=== PATIENT | male | born 1995 | race Caucasian/White ===

== ENCOUNTER 2021-12-01 11:34 | Emergency (ER) | payer OTHER, MEDICAID, SELFPAY ==
[2021-12-01 11:40] VITALS: BP 138/85; PULSE 97; RESP 24; TEMP 36.7; O2SAT 100; BMI 40.6
[2021-12-01 12:08] LABS: COVID19 -Nasal RAPID Negative (Negative)
[2021-12-01] MEDS: ALBUTEROL/IPRATROPIUM 3 ML AMPUL INH (12:33)
[2021-12-01 12:34] VITALS: PULSE 104; RESP 18; O2SAT 98
--- NOTE | 2021-12-01 12:34 | ED_ITS ---
HPI - Asthma <FOUZIA Davila - Last Filed: 12/01/21 20:05> General Chief Complaint: Asthma Stated Complaint: Asthma attack Time Seen by Provider: 12/01/21 12:11 Source: patient Mode of arrival: Ambulatory History of Present Illness HPI Narrative: This is a 26-year-old male with history of asthma and seasonal allergies who presents to the emergency department reporting he had an acute exacerbation this morning with shortness of breath, and he has run out of his albuterol inhaler. He states he does not have a primary care doctor right now, he is new to this area, his exacerbation did not improve at home. He denies any recent illness, fever, pain, or chest pain. Patient takes Claritin daily for his seasonal allergies, woke up this morning feeling breathless, and it did not improve without an inhaler at home. Related Data Previous Rx's Medication Instructions Recorded albuterol sulfate 90 mcg/actuation 1 inh INHALATION QID PRN #6.7 g 12/01/21 aerosol inhaler fluticasone furoate 27.5 1 spray INTRANASAL DAILY #9.1 ml 12/01/21 mcg/actuation nasal spray,suspension methylprednisolone 4 mg tablets in See Rx Instructions .ROUTE 12/01/21 a dose pack (Medrol (Isacc)) .COMPLEX #21 ea Allergies Allergy/AdvReac Type Severity Reaction Status Date / Time No Known Drug Allergies Allergy Verified 12/01/21 11:50 Review of Systems <FOUZIA Davila - Last Filed: 12/01/21 20:05> Review of Systems Narrative: General: denies fever, chills, malaise, sweats, fatigue Head/Neck: denies headache, neck pain, dizziness Eyes: denies visual changes, eye pain Cardio: denies chest pain, palpitations, edema Respiratory: Endorses dyspnea, cough, shortness of breath with activity, denies orthopnea GI: denies abdominal pain, nausea, vomiting, or diarrhea MSK: denies joint pain, muscle weakness Skin: denies rash, itching, skin lesions or other Neuro: denies numbness, tingling Patient History <FOUZIA Davila - Last Filed: 12/01/21 20:05> Social History Smoking Status: Unknown if ever smoked Smoking Status: Unknown if ever smoked alcohol intake frequency: holidays/special occasions only Substance Use Type: does not use Exam <FOUZIA Davila - Last Filed: 12/01/21 20:05> Narrative Exam Narrative: Independently reviewed vitals signs and nursing notes. General: cooperative, comfortable, in no acute distress, well groomed Head: atraumatic, symmetrical facial expressions Neck: supple Eyes: equal round and reactive, EOMI, conjunctiva normal Nose: nares patent, no rhinorrhea Mouth/Throat: moist mucus membranes Cardiovascular: regular rate and rhythm, no peripheral edema, warm extremities Respiratory: normal effort, able to speak in complete sentences, no audible wheezing, stridor, or rales. No retractions, mildly tachypneic with respiratory rate of 24, breath sounds are slightly diminished, they have reportedly improved pt and he states he only feels slightly short of breath now and is no longer wheezing GI: abdomen soft, nontender to palpation, nondistended, no masses, no exquisite tenderness with exam, without guarding or rebound. MSK: moves all extremities, neurovascularly intact, no weakness, normal tone Skin: brisk capillary refill, no rash, no erythema Neuro: normal speech and cognition, A&O x3 Psych: mental status is grossly normal, congruent mood, normal affect, pleasant and cooperative Initial Vital Signs Initial Vital Signs: Vital Signs Temperature 98.0 F 12/01/21 11:40 Pulse Rate 97 H 12/01/21 11:40 Respiratory Rate 24 12/01/21 11:40 Blood Pressure 138/85 12/01/21 11:40 Pulse Oximetry 100 12/01/21 11:40 <Marzena Ha DO - Last Filed: 12/08/21 07:36> Initial Vital Signs Initial Vital Signs: Vital Signs Temperature 98.0 F 12/01/21 11:40 Pulse Rate 97 H 12/01/21 11:40 Respiratory Rate 24 12/01/21 11:40 Blood Pressure 138/85 12/01/21 11:40 Pulse Oximetry 100 12/01/21 11:40 Course <FOUZIA Davila - Last Filed: 12/01/21 20:05> Orders Ordered: Discontinued Medications Albuterol/Ipratropium (Albuterol/Ipratropium 3 Ml Ampul) 3 ml INH NOW ONE Stop: 12/01/21 12:27 Last Admin: 12/01/21 12:33 Dose: 3 ml Documented by: TORI Dexamethasone (Dexamethasone 10 Mg/Ml Vial) 10 mg PO NOW ONE Stop: 12/01/21 12:28 Last Admin: 12/01/21 12:41 Dose: 10 mg Documented by: KBROTEM Vital Signs Vital signs: Vital Signs - 8 hr 12/01/21 12:34 12/01/21 12:43 Pulse Rate 104 H 104 H Respiratory Rate 18 Pulse Oximetry 98 100 <Marzena Ha DO - Last Filed: 12/08/21 07:36> Orders Ordered: Discontinued Medications Albuterol/Ipratropium (Albuterol/Ipratropium 3 Ml Ampul) 3 ml INH NOW ONE Stop: 12/01/21 12:27 Last Admin: 12/01/21 12:33 Dose: 3 ml Documented by: TORI Dexamethasone (Dexamethasone 10 Mg/Ml Vial) 10 mg PO NOW ONE Stop: 12/01/21 12:28 Last Admin: 12/01/21 12:41 Dose: 10 mg Documented by: KBROTEM Vital Signs Vital signs: Vital Signs - 8 hr 12/01/21 12:34 12/01/21 12:43 Pulse Rate 104 H 104 H Respiratory Rate 18 Pulse Oximetry 98 100 [facility] - Asthma <FOUZIA Davila - Last Filed: 12/01/21 20:05> Lab Data Labs: Lab Results 12/01/21 Range/Units 11:48 SARS-CoV-2 (PCR) Negative (Negative) ECG Data Interpretation: EKG independently reviewed by myself reveals sinus tachycardia at 105 bpm with regular axis and intervals. No STEMI, ST segment changes, arrhythmia, or acute ischemic changes. MDM Narrative Medical decision making narrative: This is a 26-year-old male with history of asthma and allergic rhinitis who presents to the emergency department with acute asthma exacerbation and dyspnea. Patient reports feeling breathless this morning and ran out of his albuterol inhaler at home. He does not currently have a primary care provider and is looking to establish care. Initially on exam, patient was tachypneic with a rate of 24, without hypoxia, O2 saturation of 100%, patient states that when woke up around eight this morning, he was breathless and short of breath with wheezing and it has improved since then but only slightly and just recently. He denies any illness symptoms prior to today, states he has a history of asthma exacerbations with seasonal allergies approximately once per month but especially in the spring and the fall. Patient reportedly feels better after DuoNeb x1, COVID PCR was negative, patient is encouraged to establish primary care with a provider based on his insurance or here with [facility]. Patient's albuterol inhaler prescription was refilled and he was given refills x3, also prescribed fluticasone and Medrol Dosepak. He was given Decadron x1 in the emergency department. Patient is taking Claritin at home to help prevent his allergy trigger. Other causes dyspnea considered including HI, PE, pneumothorax, pneumonia, bronchospasm, and pleurisy. Patient reports no radiation, no diaphoresis, no provocation with exertion, and no vomiting. is appropriate and amenable to discharge home. Vital signs are stable on repeat examination is unremarkable. Patient has been informed of results. Patient has been given strict return to ER precautions for any new or worsening symptoms. Patient understands to follow up closely with outpatient providers as instructed. Patient understands plan and agrees to discharge home. All questions and concerns answered at this time. <Marzena Ha, - Last Filed: 12/08/21 07:36> Lab Data Labs: Lab Results 12/01/21 Range/Units 11:48 SARS-CoV-2 (PCR) Negative (Negative) Discharge Plan Departure Patient Disposition: Home Clinical Impression: Asthma with acute exacerbation Instructions: Allergic Rhinitis, DI for Asthma -- Adult Activity Restrictions/Additional Instructions: *You have been diagnosed with allergic rhinitis triggering your asthma causing an acute exacerbation. Please use your albuterol inhaler every 4 hours as needed for wheezing, frequent coughing or shortness of breath. Please take your allergy medicine daily whether it is Claritin or Zyrtec to help prevent your trigger, please try Flonase twice a day for the next two weeks while pollens are high to see if this helps any of your symptoms as well. I wish you the best, return to the emergency department for any worsening of your symptoms. The steroids we gave you today in the emergency department should help you get over this, if you feel shortness of breath or tightness tomorrow morning, please start the steroid pack per the directions on the package. Please stay hydrated, return for any worsening of this. *What to do: *Please continue to take your regular medications as directed. [x ] New medication prescriptions sent to your pharmacy: [ [facility]] [ ] New medication written as a paper prescription [ ] No new medications given *Please follow up with your primary care provider in 2-3 days, call for an appointment. Let them know you were seen in the Emergency Department and that we asked that you be seen for follow-up. We will electronically transmit a record of today's note if your PCP is in our system *If you do not have a primary care provider please contact [phone] to establish care with one of the [facility] primary care providers. *Return to Emergency Department if you should have any new, worsening or concerning symptoms, such as [fever greater than 101F, chills, worsening pain, persistent vomiting or other bothersome symptoms] Prescriptions: New fluticasone furoate 27.5 mcg/actuation spray,suspension 1 spray intranasal DAILY Qty: 9.1 0RF Rx Instructions: into each nostril albuterol sulfate 90 mcg/actuation HFA aerosol inhaler 1 inh inhalation QID PRN (Reason: shortness of breath or wheezing) Qty: 6.7 3RF methylprednisolone [Medrol (Isacc)] 4 mg tablets,dose pack See Rx Instructions .ROUTE .COMPLEX Qty: 21 0RF Rx Instructions: orally per package directions <Marzena Ha, - Last Filed: 12/08/21 07:36> Cosign ED Attending Marciature Attestation: I was immediately available in the department for consultation. Documentation has been reviewed.
[2021-12-01] MEDS: DEXAMETHASONE 10 MG/ML VIAL PO (12:41)
[2021-12-01 12:43] VITALS: PULSE 104; O2SAT 100
== END 2021-12-01 12:44 | disposition home or self-care (01) ==
PROVIDERS: Emergency Medicine; Emergency Provider Nurse Practitioner Critical Care Medicine
DX: J45.901 Unspecified asthma with (acute) exacerbation (principal); R00.0 Tachycardia, unspecified; Z20.822 Contact with and (suspected) exposure to COVID-19
CPT/HCPCS: 87635; 93005; 93010; 94150; 94640; 99283; C9803; J1100

== ENCOUNTER 2022-12-05 13:46 | Emergency (ER) | payer OTHER, MEDICAID, SELFPAY ==
[2022-12-05 14:04] VITALS: BP 146/88; PULSE 84; RESP 16; TEMP 36.6; O2SAT 98; BMI 40.2
--- NOTE | 2022-12-05 16:28 | CM.SWNOTE ---
WAITSTAFF Note WAITSTAFF receives consult from [employer] consultant regarding patient's concern for increasing life stressors and anxiety. Patient scheduled PCP appt with Dr. Avendano for 03/06/23 and was hoping to have sooner follow up to get back on medications to address anxiety and depression. It was reported to WAITSTAFF that patient's mother has brain cancer and patient has been lacking sleep. No reported SI or HI. WAITSTAFF calls [address] [facility] and schedules ED f/u appt for patient with Dr. Crowe at 9:45AM for 12/07/22. After patient waits in ED for 2.5 hours, he calls to ask about his ETA for an ED room. WAITSTAFF meets with patient and father in waiting room. Patient endorses he was notified on his phone that he has the upcoming appt with PCP office. Patient reports he feels like he does not need to be seen in ED at this time if he has that appt on . Patient endorses safety to d/c to home before being seen. WAITSTAFF notifies RN regarding patient's VDC before being seen. Plan: patient to d/c to home with father, patient to f/u with PCP Dr. Crowe for f/u appt on 12/07/22. NAASTASIYA Esteban
== END 2022-12-05 16:28 | disposition left against medical advice (07) ==
PROVIDERS: Emergency Provider Emergency Medicine
CPT/HCPCS: 99281

== ENCOUNTER → 2023-08-09 14:08 | Outpatient (CLI) | payer OTHER, MEDICAID, SELFPAY ==
[2023-08-09 16:44] LABS: Hepatitis B Surface Antigen NEGATIVE s/c (NEGATIVE)
[2023-08-09 16:48] LABS: Urine Chlamydia NOT DETECTED; Urine N gonorrhoeae NOT DETECTED
[2023-08-09 17:44] LABS: HIV 1 & 2 Ab/Ag 4th Gen Combo NEGATIVE (NEGATIVE); Hep C Virus Ab w/Reflex Quant NEGATIVE s/c (NEGATIVE)
[2023-08-11 04:10] LABS: RPR Screen Non Reactive (Non Reactive)
[2023-08-14 13:16] LABS: HSV1IGG 1.92
[2023-08-14 13:17] LABS: HSV 2 IGG AB < 0.91
== END ==
PROVIDERS: PCP Family Medicine; Referring Provider Nurse Practitioner Family; Visit Provider Nurse Practitioner Family
DX: Z72.51 High risk heterosexual behavior (principal)
CPT/HCPCS: 36415; 86592; 86695; 86696; 86803; 87340; 87389; 87491; 87591

== ENCOUNTER 2024-05-10 00:15 | Observation (INO) | payer OTHER, MEDICAID, SELFPAY ==
[2024-05-10] VITALS (12 sets, daily range): BP systolic 127–151; BP diastolic 71–85; PULSE 85–124; RESP 17–24; TEMP 35.9–37.2; O2SAT 94–98; BMI 40.6
--- NOTE | 2024-05-10 00:27 | ED_ITS ---
HPI - General Adult General Chief complaint: Chest Pain Stated complaint: thinks he's having heart attack Time Seen by Provider: 05/10/24 00:22 History of Present Illness HPI narrative: 28-year-old male who identified as current Jehovahs Witness, history of autism, last known well approximately midnight when he was preparing to go to bed, was not exerting himself, had onset of anterior mid chest discomfort, at the same time as left-sided numbness and weakness sensation to his left upper and lower face, left upper extremity, left lower extremity. No injury or trauma. No history of aortic problems. No history of stroke. No history of atrial fibrillation or abnormal heart rhythms. He does not take chronic blood thinner medications. Denies alcohol or drug use. No similar symptoms like this in the past. No known coronary artery disease. Related Data Previous Rx's Medication Instructions Recorded albuterol sulfate 90 mcg/actuation 1 inh inhalation QID PRN shortness 09/04/23 aerosol inhaler of breath or wheezing #6.7 grams fluticasone furoate 27.5 1 spray intranasal DAILY PRN nasal 09/04/23 mcg/actuation nasal congestion #9.1 mL spray,suspension Allergies Allergy/AdvReac Type Severity Reaction Status Date / Time No Known Drug Allergies Allergy Verified 09/04/23 13:40 Review of Systems Review of Systems Narrative: see HPI Patient History Medical History High risk sexual behavior Well adult on routine health check Social anxiety disorder Autism Asthma Allergies Obesity History of depressive symptoms Anxiety Surgical History Anesthesia History of endoscopy (~2019) History of tonsillectomy (~1999) History of knee surgery (~2010) Family History Mother Cancer Glioblastoma Grandfather History of heart disease Social History Smoking Status: Never smoker Smoking Status: Never smoker alcohol intake frequency: holidays/special occasions only Substance Use Type: does not use Exam Narrative Exam Narrative: GENERAL: Well-developed patient, in mild distress. HEAD: Atraumatic. Normocephalic. EYES: Pupils equal round and reactive. Extraocular motions intact. No scleral icterus. No injection or drainage. ENT: Nose without bleeding, purulent drainage. Throat without erythema, tonsillar hypertrophy or exudate. Airway patent. NECK: Trachea midline. Non tender CARDIOVASCULAR: Regular rate and rhythm without murmurs, gallops, or rubs. RESPIRATORY: Clear to auscultation. Breath sounds equal bilaterally. No wheezes, rales, or rhonchi. GASTROINTESTINAL: Abdomen soft, non-tender, nondistended. EXTREMITIES: No edema or joint tenderness. BACK: Nontender without deformity or crepitance. No flank tenderness. NEURO: Reported autism, however was quite cooperative with exam. Pupils equal round and reactive to light. Complained of bilateral blurred vision but not particularly in either eye greater than the other, no scotomata like symptoms, no hemianopsia like symptoms. Motor 5/5 upper extremities and lower extremities, however patient had subjective weakness to left arm or left leg. Did not attempt uzaejk-pu-xpes testing due to left antecubital IV. Wfdi-ak-skyv testing bilateral seem normal. Slight decreased sensation light touch left upper and lower face, left upper extremity, left lower extremity. SKIN: No rash or erythema of visible areas Initial Vital Signs Initial Vital Signs: Vital Signs Temperature 98.2 F 05/10/24 00:26 Pulse Rate 98 H 05/10/24 00:26 Respiratory Rate 22 05/10/24 00:26 Blood Pressure 146/81 H 05/10/24 00:26 Pulse Oximetry 98 05/10/24 00:26 Oxygen Delivery Method Room Air 05/10/24 00:26 Course Orders Ordered: ED Orders 05/10/24 00:[address] angio head and neck Stat Complete Blood Count AUTO DIFF Stat Comprehensive Metabolic Panel Stat Ethanol (ETOH) Stat PTT Partial Thromboplastin Ashish Stat Prothrombin Time INR Stat Troponin & CK Cardiac Panel Stat Urine Drug Screen, Rapid Stat EKG-12 Lead Stat 05/10/24 00:52 CT angio chest abdomen pelvis Stat 05/10/24 02:35 Troponin I Stat Vital Signs Vital signs: Vital Signs - 8 hr 05/10/24 00:26 05/10/24 02:18 05/10/24 02:19 Temperature 98.2 F Pulse Rate 98 H 112 H 111 H Respiratory Rate 22 Blood Pressure 146/81 H Pulse Oximetry 98 97 97 Oxygen Delivery Method Room Air 05/10/24 02:19 05/10/24 02:30 05/10/24 02:30 Temperature Pulse Rate 112 H Respiratory Rate 18 Blood Pressure 151/85 H 147/79 H Pulse Oximetry 97 Oxygen Delivery Method 05/10/24 03:00 05/10/24 03:00 05/10/24 03:14 Temperature Pulse Rate 116 H 124 H Respiratory Rate 18 Blood Pressure 151/85 H Pulse Oximetry 95 98 Oxygen Delivery Method 05/10/24 03:30 05/10/24 04:00 Temperature Pulse Rate Respiratory Rate Blood Pressure 140/71 148/83 H Pulse Oximetry Oxygen Delivery Method Medical Decision Making Lab Data Lab results reviewed: Yes I reviewed the patient's lab results. Lab results narrative: Glucose 119. White blood cell count 29587, hemoglobin 14.8, electrolytes unremarkable. Renal function normal. Liver functions normal. Blood alcohol level negative. 05/10/24 00:25 05/10/24 00:25 Labs: Lab Results 05/10/24 05/10/24 Range/Units 00:25 02:35 WBC 13.2 H (4.5-11.0) X10^3/uL RBC 4.92 (4.5-5.9) X10^6/uL Hgb 14.8 (13.5-17.5) g/dL Hct 44.1 (41-53) % MCV 89.6 (80-100) fL MCH 30.1 (26-34) PG MCHC 33.5 (30-36) % RDW 13.3 (11.6-14.8) % Plt Count 454 H (150-400) X10^3/uL Neut % (Auto) 55.6 (50-75) % Lymph % (Auto) 33.3 (25-40) % [place] % (Auto) 8.9 (3-14) % Eos % (Auto) 1.6 L (2-4) % Baso % (Auto) 0.6 (0-2) % Neut # (Auto) 7300 H (5002-1344) /uL Lymph # (Auto) 4400 (2216-3318) /uL [place] # (Auto) 1200 H (0-900) /uL Eos # (Auto) 200 (0-450) /uL Baso # (Auto) 100 (0-100) /uL PT 10.9 (9.4-12.5) SECONDS INR 1.0 (0.9-1.3) APTT 32 (25.1-36.5) SECONDS Sodium 138 (137-145) mmol/L Potassium 3.6 (3.4-5.1) mmol/L Chloride 105 (98-107) mmol/L Carbon Dioxide 20 L (22-32) mmol/L BUN 12 (9-20) mg/dL Creatinine 0.87 (0.66-1.25) mg/dL Estimated GFR > 60 (>60) mL/min BUN/Creatinine Ratio 13.8 (6-22) Glucose 119 H (70-100) mg/dL Calcium 9.1 (8.4-10.2) mg/dL Total Bilirubin 0.5 (0.2-1.3) mg/dL AST 33 (17-59) IU/L ALT 55 H (<50) IU/L Alkaline Phosphatase 84 (38-126) U/L Total Creatine Kinase 100 (55-170) U/L Troponin I < 0.012 < 0.012 (0.01-0.034) ng/mL Total Protein 7.4 (6.3-8.2) g/dL Albumin 4.4 (3.5-5.0) g/dL Globulin 3.0 (1.7-4.1) g/dL Albumin/Globulin Ratio 1.5 (1.0-2.8) Ethyl Alcohol < 10 ( - 10) mg/dL Imaging Data CT scan - head: Radiologist's Impression: [address] [address] [address] Scan Report Signed Patient: Reyes Wilson MR#: [id number] : 1995 Acct:[id number] Age/Sex: 28 / M Date of Service: 05/10/24 Loc: ED Accession Number: [id number] Procedure: CT Stroke Ordering Provider: Kali Morfin MD PROCEDURE: CT STROKE INDICATIONS: new left sided numbness TECHNIQUE: Noncontrast 4.5 mm thick angled axial sections acquired from the foramen magnum to the vertex, with coronal reformats. For radiation dose reduction, the following was used: automated exposure control, adjustment of mA and/or kV according to patient size. COMPARISON: None. FINDINGS: Image quality: Mild motion artifact. CSF spaces: Basal cisterns are patent. No extra-axial fluid collections. Ventricles are normal in size and shape. Brain: No midline shift. No intracranial masses or hemorrhage. Haley-white matter interface is normal. Skull and face: Calvarium and visualized facial bones are intact, without suspicious lesions. Sinuses: Visualized sinuses and mastoids are clear. IMPRESSION: Mild motion degradation. No definite acute intracranial pathology. Findings discussed with Dr. Morfin at the time of dictation. This study fulfills neurological imaging criteria for inclusion or exclusion of acute stroke therapies based on available published neurological imaging guidelines. Dictated by: Patricio Grimaldo M.D. on 05/10/2024 at 1:11 Approved by: Patricio Grimaldo M.D. on 05/10/2024 at 1:15 CTA - brain/neck: Radiologist's Impression: [address] [address] [address] Scan Report Signed Patient: Reyes Wilson MR#: [id number] : 1995 Acct:[id number] Age/Sex: 28 / M Date of Service: 05/10/24 Loc: ED Accession Number: [id number] Procedure: CT angio head and neck Ordering Provider: Kali Morfin MD PROCEDURE: CT ANGIO HEAD AND NECK INDICATIONS: new new left sided numbness TECHNIQUE: After the administration of intravenous contrast, 1 mm thick sections acquired from the aortic arch through the [place] of [place]. 3-dimensional cdjboqx-odwtqbtxl-dledmfrkor (MIP) and/or volume rendering reformats were acquired of the central intracranial vasculature and neck separately. For radiation dose reduction, the following was used: automated exposure control, adjustment of mA and/or kV according to patient size. COMPARISON: None. FINDINGS: Image quality: Diagnostic. BRAIN: Please see separately dictated CT of the head. HEAD CT ANGIOGRAPHY: Anterior circulation: Intracranial internal carotid arteries are normal in size and flow. The flow within the paired anterior cerebral arteries is normal and symmetric. The flow within the middle cerebral arteries is normal and symmetric. The anterior communicating artery is seen. No aneurysms are seen. Posterior circulation: Visualized portions of the vertebral arteries demonstrate normal caliber, and join to form a normal appearing basilar artery. origin of the right RIG HAND. Flow within the posterior cerebral arteries is normal and symmetric. No aneurysms are seen. NECK CT ANGIOGRAPHY: Carotid system: The great vessels demonstrate a conventional anatomy as they arise from the aortic arch. The origins of the common carotid arteries appear patent. The common carotid arteries demonstrate normal caliber and courses. The bifurcation regions are both widely patent. The internal carotid arteries demonstrate normal calibers and tortuous courses. Posterior circulation: The origins of the vertebral arteries both appear widely patent. The more superior extracranial portions of both vertebral arteries also demonstrate normal courses and calibers. They join to form a normal appearing basilar artery. Soft tissues: Visualized neck soft tissues demonstrate no suspicious abnormalities. Bones: No suspicious bony lesions. Visualized cervical spine appears normally aligned. IMPRESSION: No significant intracranial arterial abnormality is seen. No significant abnormality is seen within the arteries of the neck. Any quantitative measurements of stenosis were performed using NASCET criteria. Dictated by: Patricio Grimaldo M.D. on 05/10/2024 at 1:15 Approved by: Patricio Grimaldo M.D. on 05/10/2024 at 1:23 CT angio chest abdomen and pelvis: Radiologist's Impression: [place] [address] CT Scan Report Signed Patient: Reyes Wilson MR#: [id number] : 1995 Acct:[id number] Age/Sex: 28 / M Date of Service: 05/10/24 Loc: ED Accession Number: [id number] Procedure: CT angio chest abdomen pelvis Ordering Provider: Kali Morfin MD PROCEDURE: CT ANGIO CHEST ABDOMEN PELVIS INDICATIONS: left numbness/weak with Chest pain TECHNIQUE: Precontrast 5 mm thick sections acquired from the lung apices to the iliac crests. After the administration of intravenous contrast, 2.5 mm thick sections again acquired from the lung apices to the iliac crests. Maximum intensity projection (MIP) oblique sagittal and coronal reformats were then acquired. For radiation dose reduction, the following was used: automated exposure control. COMPARISON: None. FINDINGS: Image quality: Diagnostic. AORTA: No aortic aneurysm. No acute aortic syndrome. CHEST: Lower Neck: No enlarged lymph nodes. Thyroid: No thyroid nodules which require sonographic evaluation. Axillae: No enlarged lymph nodes. Chest Wall: Unremarkable. Lungs and Pleura: No pneumothorax or pleural effusions. No consolidation or suspicious nodules. Heart: Heart size is normal. No pericardial effusion. Thoracic Vessels: Pulmonary arteries demonstrate normal size. Mediastinum and Sariah: No enlarged lymph nodes. Esophagus: No wall thickening. No hiatal hernia. ABDOMEN: Liver: No solid mass. Hepatic steatosis. Gallbladder: No radiopaque gallstones or wall thickening. Biliary ducts: No biliary dilation. Pancreas: No ductal dilation. Spleen: Size is within normal limits. Adrenal Glands: No adrenal nodules. Kidneys and Ureters: No hydronephrosis. Contrast in the collecting systems. No solid mass. No complex renal cystic lesion which requires follow up. Stomach and Bowel: Normal colonic caliber, without significant wall thickening. Normal appendix. Peritoneum: No abnormal intraperitoneal fluid. No free air. Ventral Wall: No hernia. Abdominal Nodes: Prominent mesenteric lymph nodes are noted. Vessels: Inferior vena cava is normal in size. PELVIS: Pelvic Organs: Unremarkable. Bladder: Filled with contrast, limiting evaluation. Pelvic Nodes: No enlarged lymph nodes. Miscellaneous: No inguinal hernias are seen. Bones: Unremarkable. IMPRESSION: 1. No acute aortic syndrome. 2. No acute findings within the chest, abdomen or pelvis. 3. Hepatic steatosis. 4. Prominent subcentimeter mesenteric lymph nodes are noted. These are nonspecific. While these may be reactive, a metastatic or lymphomatous process cannot be excluded. Recommend clinical correlation and follow-up. Dictated by: Patricio Grimaldo M.D. on 05/10/2024 at 2:03 Approved by: Patricio Grimaldo M.D. on 05/10/2024 at 2:10 ECG Data Attestation: I personally reviewed and interpreted this ECG as follows: Interpretation: 0040, sinus tachycardia with rate 111, no obvious ST segment elevation or depression changes. Low voltage lead 3 unclear cause, voltage seems reasonable in other leads. NC 116, QRS 102, QTC 454. MDM Narrative Medical decision making narrative: 28-year-old male with reported history of autism, last known well midnight, had left anterior chest discomfort at the same time as he complained of acute onset numbness and slight weakness to the left upper and lower face, left upper extremity, left lower extremity. Chest discomfort with neuro symptoms, consider dissection. Consider acute ischemic stroke with non aortic dissection related chest pain. EKG with sinus tachycardia noted, no obvious ischemic changes. Glucose normal. Hemoglobin and platelets normal. Alcohol level negative. Renal function normal. CT head noncontrast already ordered, CTA head and neck vessels ordered, CTA chest abdomen and pelvis aortogram ordered. Discussed imaging with burial needs salesperson. CT brain noncontrast study, initial phone call from Radiology, then report imported. No obvious acute changes, some movement artifact noted. See radiology report. CT head and neck angiogram, no thromboses or significant narrowing, no acute changes. See radiology report CTA aortogram chest abdomen and pelvis results still pending, patient/father aware, anticipate consultation with Neurology if negative, with Vascular Surgery if positive. Keep NPO Visual acuity studies normal, see nursing notes. CT aortogram shows no acute changes, hepatic steatosis noted, mesenteric lymph nodes mentioned. See radiology report. Nursing notes score NIHSS 1 noted, for left leg drift at 5 seconds downward but not onto bed. I could not appreciate any motor drift when I did exam, though he seemed to have decreased sensation to light touch face arm leg on the left side to my exam that was not noted by nursing. Left-sided weakness subjective, not demonstrable on my exam but still possibly impactful. Will consult Neurology CT/CTA images forwarded to [facility]. Stroke Neurology paged, awaiting call back. Repeat troponin 0230 also negative/unmeasurable. 0250, case discussed with Neurology Fellow Dr Turner, who will consult his attending. 0300, / Neuro callback, they will initiate bedside teleneurology consultation. 0345, discussed post consultation with patient/father, they are under the impression that thrombolytics not recommended, and they would not want thrombolytics, might be open to antiplatelet therapies however. We will Re page back Neurology to query their impressions and recommendations. 0400, case discussed with Dr. Turner Neurology, lytics not recommended, consider further workup including brain MRI fasting lipid panel hemoglobin A1c. If MRI suggests infarct than they would additionally recommend TTE with bubble study. Recommend admission with telemetry monitoring. He would not recommend starting antiplatelet therapy at this time, when I specifically asked about antiplatelet therapies. Records review of neurology consultation Dr Johnny BARNES Stroke Fellow, with attending Dr Juanis Baker MD, dictated report faxed. Assessment and plan: ?28-year-old right-handed male with autism who presented for chest discomfort and left face arm leg sensory motor symptoms. He describes the sensory symptoms as a reduction of sensation of sharpness and also a tingling. His motor exam is reassuring with indirect/passive evaluation. His sensory symptoms or atypical for an ischemic event but warrant further evaluation. Diagnostic impression: Possible ischemic event. IV thrombolysis not recommended due to minor deficits not expected to result in long-term disability. Likely stroke mimic or not stroke. Patient/father declined thrombolysis. Disposition: Current hospital. Nursing recommendations: Neuro checks and vital signs per unit routine. Call stroke code status for any new stroke symptoms or significant worsening neurological deficit. Swallow screen: Mandatory prior to any p.o. intake including medications. Diagnostic testing: MRI brain, comprehensive medical panel, CBC, lipid panel, hemoglobin A1c. If MRI demonstrates infarct then obtain TTE with bubble study. Place on telemetry. Please discussed with Neurology if MRI shows infarct or notable findings. Therapies: As appropriate, evaluation by physical therapy, occupational therapy, speech therapy.? See dictated faxed printed report Recommendations relayed to patient/father, they are amenable to admission and further workup here at [facility]. Will contact hospitalist. 3850, case discussed with Dr Ernandez hospitalist, who accepts patient for admission to observation Critical Care Time Critical Care Time Critical Care Time: Yes Total Critical Care Time: 35 Attestation: The high probability of a clinically significant, sudden or life threatening deterioration of the [cerebrovascular, neurologic, cardiopulmonary] system(s) required my full and direct attention, intervention and personal management. The aggregate critical care time was [35] minutes. Extensive workup for possible stroke symptoms, also for chest pain workup, and to evaluate for life- threatening potential injury such as aortic dissection not confirmed on imaging studies. Consultation with specialty services Neurology, coordination of care with hospitalist then review of consultation records and numerous imaging study reports. Repeated discussion with patient and regarding evolving diagnosis workup and disposition plan. This time is in addition to time spent performing reported procedures but includes the following: [x] Data Review and interpretation [x] Patient assessment and monitoring of vital signs [x] Documentation [x] Medication orders and management Discharge Plan Departure Patient Disposition: Admitted as Observation Clinical Impression: Stroke, Chest pain Admit Date/Time: 05/10/24 04:22 Admit Provider: Dhaval Ernandez
[2024-05-10 00:39] LABS: Prothrombin Time 10.9 SECONDS (9.4-12.5)
[2024-05-10 00:40] LABS: Add Manual Diff / Slide Review NO; Basophils Absolute Auto 100 /uL (0-100); Basophils Percent Auto 0.6 % (0-2); Eosinophils Absolute Auto 200 /uL (0-450); Eosinophils Percent Auto 1.6 % (2-4); Hematocrit 44.1 % (41-53); Hemoglobin 14.8 g/dL (13.5-17.5); Lymphocytes Absolute Auto 4400 /uL (1100-4500); Lymphocytes Percent Auto 33.3 % (25-40); Mean Corpuscular HGB Conc 33.5 % (30-36); Mean Corpuscular Hemoglobin 30.1 PG (26-34); Mean Corpuscular Volume 89.6 fL (80-100); Monocytes Absolute Auto 1200 /uL (0-900); Monocytes Percent Auto 8.9 % (3-14); Neutrophils Absolute Auto 7300 /uL (1500-7000); Neutrophils Percent Auto 55.6 % (50-75); Platelet Count 454 X10^3/uL (150-400); Red Blood Cell Count 4.92 X10^6/uL (4.5-5.9); Red Cell Distribution Width 13.3 % (11.6-14.8); White Blood Cell Count 13.2 X10^3/uL (4.5-11.0)
--- NOTE | 2024-05-10 00:40 | EKG_ITS ---
[id number] [address] Test Date: 2024-05-10 Pat Name: Reyes Wilson Department: [facility] Room: Gender: Male Web Developer Programmer: BASSAM : 1995 Requested By: Order Number: [id number] Reading MD: Sabas Zhang Measurements Intervals [place] Rate: 111 P: 36 ND: 116 QRS: 32 QRSD: 102 T: 47 QT: 334 QTc: 454 Interpretive Statements Sinus tachycardia Electronically Signed On 05-10-2024 18:11:16 PDT by Sabas Zhang
[2024-05-10 00:41] LABS: PTT Partial Thromboplastin Tim 32 SECONDS (25.1-36.5)
[2024-05-10 00:48] LABS: Alanine Aminotransferase 55 IU/L (<50); Albumin 4.4 g/dL (3.5-5.0); Albumin Globulin Ratio 1.5 (1.0-2.8); Alkaline Phosphatase 84 U/L (38-126); Aspartate Aminotransferase 33 IU/L (17-59); BUN Creatinine Ratio 13.8 (6-22); Bilirubin Total 0.5 mg/dL (0.2-1.3); Blood Urea Nitrogen 12 mg/dL (9-20); Calcium 9.1 mg/dL (8.4-10.2); Carbon Dioxide 20 mmol/L (22-32); Chloride 105 mmol/L (98-107); Creatine Kinase 100 U/L (55-170); Estimated Glomerular Filt Rate > 60 mL/min (>60); Ethanol (ETOH) < 10 mg/dL; Glucose 119 mg/dL (70-100); HEMOLYSIS < 15 (0-50); Potassium 3.6 mmol/L (3.4-5.1); Sodium 138 mmol/L (137-145); Total Protein 7.4 g/dL (6.3-8.2)
--- NOTE | 2024-05-10 00:52 | DI.CT.S_ITS ---
PROCEDURE: CT ANGIO CHEST ABDOMEN PELVIS INDICATIONS: left numbness/weak with Chest pain TECHNIQUE: Precontrast 5 mm thick sections acquired from the lung apices to the iliac crests. After the administration of intravenous contrast, 2.5 mm thick sections again acquired from the lung apices to the iliac crests. Maximum intensity projection (MIP) oblique sagittal and coronal reformats were then acquired. For radiation dose reduction, the following was used: automated exposure control. COMPARISON: None. FINDINGS: Image quality: Diagnostic. AORTA: No aortic aneurysm. No acute aortic syndrome. CHEST: Lower Neck: No enlarged lymph nodes. Thyroid: No thyroid nodules which require sonographic evaluation. Axillae: No enlarged lymph nodes. Chest Wall: Unremarkable. Lungs and Pleura: No pneumothorax or pleural effusions. No consolidation or suspicious nodules. Heart: Heart size is normal. No pericardial effusion. Thoracic Vessels: Pulmonary arteries demonstrate normal size. Mediastinum and Sariah: No enlarged lymph nodes. Esophagus: No wall thickening. No hiatal hernia. ABDOMEN: Liver: No solid mass. Hepatic steatosis. Gallbladder: No radiopaque gallstones or wall thickening. Biliary ducts: No biliary dilation. Pancreas: No ductal dilation. Spleen: Size is within normal limits. Adrenal Glands: No adrenal nodules. Kidneys and Ureters: No hydronephrosis. Contrast in the collecting systems. No solid mass. No complex renal cystic lesion which requires follow up. Stomach and Bowel: Normal colonic caliber, without significant wall thickening. Normal appendix. Peritoneum: No abnormal intraperitoneal fluid. No free air. Ventral Wall: No hernia. Abdominal Nodes: Prominent mesenteric lymph nodes are noted. Vessels: Inferior vena cava is normal in size. PELVIS: Pelvic Organs: Unremarkable. Bladder: Filled with contrast, limiting evaluation. Pelvic Nodes: No enlarged lymph nodes. Miscellaneous: No inguinal hernias are seen. Bones: Unremarkable. IMPRESSION: 1. No acute aortic syndrome. 2. No acute findings within the chest, abdomen or pelvis. 3. Hepatic steatosis. 4. Prominent subcentimeter mesenteric lymph nodes are noted. These are nonspecific. While these may be reactive, a metastatic or lymphomatous process cannot be excluded. Recommend clinical correlation and follow-up. Dictated by: Patricio Grimaldo M.D. on 05/10/2024 at 2:03 Approved by: Patricio Grimaldo M.D. on 05/10/2024 at 2:10
[2024-05-10 00:57] LABS: Troponin I < 0.012 ng/mL (0.01-0.034)
[2024-05-10 03:08] LABS: Troponin I < 0.012 ng/mL (0.01-0.034)
--- NOTE | 2024-05-10 04:59 | DI.MRI.S_ITS ---
PROCEDURE: MR HEAD/BRAIN WO CON INDICATIONS: Neurologic symptoms, please evaluate for CVA. TECHNIQUE: Noncontrast axial T1 spin echo, axial T2 fast spin echo, sagittal and axial FLAIR, coronal T2 fast spin echo, axial gradient echo, axial diffusion and ADC through the brain. COMPARISON: [facility], CT, CT ANGIO HEAD AND NECK, 05/10/2024, 0:41. [facility], CT, CT STROKE, 05/10/2024, 0:41. FINDINGS: Image quality: Excellent. CSF Spaces: Basal cisterns are patent. No extra-axial fluid collections. Ventricles are normal in size and shape. Brain: No intracranial masses or hemorrhage. Haley/white matter interface is normal. Brainstem appears normal. Diffusion-weighted images demonstrate no acute infarct. No chronic ischemic insults. Normal intravascular flow voids are present. Skull and face: Calvarium has normal marrow signal. Orbits appear normal. Sinuses: There is a mucous retention cyst within the left maxillary sinus. Sinuses and mastoids are otherwise clear. IMPRESSION: No findings of acute or subacute infarction can be seen. Dictated by: Yousif Loza M.D. on 05/10/2024 at 7:52 Approved by: Yousif Loza M.D. on 05/10/2024 at 7:54
--- NOTE | 2024-05-10 05:19 | PM.HP.1 ---
History of Present Illness History of Present Illness Chief complaint: thinks he's having heart attack Narrative: 28 year old [employer] male with past medical history of asthma and autism presents with complaints of left sided deficit. Per the patient's reprot, about midnight when the patient was getting ready for bed (about 30 minutes prior to presenting to our ER), the patient started to have acute onset of left sided facial and left extremities weakness and numbness. The patient alert his father right away and was brought to our ER. The patient also has some chest discomfort that came on the same time. The patient denies any prior of stroke like symptoms or afib. The patient's father states that his son speech is slightly slow but not slurred. Otherwise the patient denies any recent fever, chills, nausea, vomiting or diarrhea. In our ER, the patient was hemodynamically stable. Labs shows WBC of [address] and CTA of head and neck shows no acute sign of stroke. CT of chest abdomen and pelvic alsoo doesn't show anything acute other than some swelling of lymphnodes. Per our ER physician, the patient symptoms did improve significantly but not completely resovled. Neuro-stroke was called and recommended that we admit the patient for brain MRI and stroke workup if MRI is positive for stroke. No duo-antiplatelet recommended at this time per neurology. [facility] Medical History High risk sexual behavior Well adult on routine health check Social anxiety disorder Autism Asthma Allergies Obesity History of depressive symptoms Anxiety Surgical History Anesthesia History of endoscopy (~2019) History of tonsillectomy (~1999) History of knee surgery (~2010) Family History Mother Cancer Glioblastoma Grandfather History of heart disease Social History household members: family Smoking Status: Never smoker Meds Home Medications and Allergies Home Medications Medication Instructions Recorded Confirmed Type albuterol sulfate 90 mcg/actuation 1 inh inhalation QID PRN shortness 09/04/23 09/04/23 Rx aerosol inhaler of breath or wheezing #6.7 grams fluticasone furoate 27.5 1 spray intranasal DAILY PRN nasal 09/04/23 09/04/23 Rx mcg/actuation nasal congestion #9.1 mL spray,suspension amoxicillin 500 mg-potassium 1 tab PO Q6H 05/10/24 05/10/24 History clavulanate 125 mg tablet Allergies Allergy/AdvReac Type Severity Reaction Status Date / Time No Known Drug Allergies Allergy Verified 09/04/23 13:40 Review of Systems Review of Systems ROS: Yes All systems reviewed with the patient and are negative except as otherwise documented Exam Vital Signs (past 8 hours): - 05/10/24 00:26 05/10/24 02:18 05/10/24 02:19 Temperature 98.2 F Pulse Rate 98 H 112 H 111 H Respiratory Rate 22 Blood Pressure 146/81 H Pulse Oximetry 98 97 97 Oxygen Delivery Method Room Air 05/10/24 02:19 05/10/24 02:30 05/10/24 02:30 Temperature Pulse Rate 112 H Respiratory Rate 18 Blood Pressure 151/85 H 147/79 H Pulse Oximetry 97 Oxygen Delivery Method 05/10/24 03:00 05/10/24 03:00 05/10/24 03:14 Temperature Pulse Rate 116 H 124 H Respiratory Rate 18 Blood Pressure 151/85 H Pulse Oximetry 95 98 Oxygen Delivery Method 05/10/24 03:30 05/10/24 04:00 Temperature Pulse Rate Respiratory Rate Blood Pressure 140/71 148/83 H Pulse Oximetry Oxygen Delivery Method Oxygen Delivery Method Room Air Narrative Exam Narrative: GENERAL: The patient is not in any acute distressed. Awake and alert. HEENT: Nonicteric sclerae, PERRLA, EOMI. Oropharynx clear. Moist mucous membranes. Conjunctivae appear well perfused. HEART: Regular rate and rhythm without murmurs. No lower extremities edema. LUNGS: Clear to auscultation bilaterally. No wheezing, crackles or rhonchi ABDOMEN: Soft, positive bowel sounds, nontender. SKIN: No rash, no excessive bruising, petechiae, or purpura. NEUROLOGIC: AxO x 3. Cranial nerves II-XII intact without motor/sensory deficit. Objective Labs 05/10/24 00:25 05/10/24 00:25 Labs: Laboratory Results - last 24 hr 05/10/24 05/10/24 00:25 02:35 WBC 13.2 H RBC 4.92 Hgb 14.8 Hct 44.1 MCV 89.6 MCH 30.1 MCHC 33.5 RDW 13.3 Plt Count 454 H Neut % (Auto) 55.6 Lymph % (Auto) 33.3 [place] % (Auto) 8.9 Eos % (Auto) 1.6 L Baso % (Auto) 0.6 Neut # (Auto) 7300 H Lymph # (Auto) 4400 [place] # (Auto) 1200 H Eos # (Auto) 200 Baso # (Auto) 100 PT 10.9 INR 1.0 APTT 32 Sodium 138 Potassium 3.6 Chloride 105 Carbon Dioxide 20 L BUN 12 Creatinine 0.87 Estimated GFR > 60 BUN/Creatinine Ratio 13.8 Glucose 119 H Calcium 9.1 Total Bilirubin 0.5 AST 33 ALT 55 H Alkaline Phosphatase 84 Total Creatine Kinase 100 Troponin I < 0.012 < 0.012 Total Protein 7.4 Albumin 4.4 Globulin 3.0 Albumin/Globulin Ratio 1.5 Ethyl Alcohol < 10 Assessment & Plan Assessment & Plan narrative: TIA/CVA. Admit the patient to medical telemetry under observation. Note, patient's left sided numbness and weakness now seems to resolved. Patient is non focal on exam. CTA head and neck shows no acute findings. Continue ASA. Neuro-stroke was called and recommended that we admit the patient for brain MRI and stroke workup if MRI is positive for stroke. No duo-antiplatelet recommended at this time per neurology. Will monitor patient for any afib/aflutter on tele. Monitor neuro status closely. PT/OT. A1c and lipid profile ordered. History of Asthma. No sign of acute attack. Monitor for now. DVT PPx hep SQ Code status full code Disposition home in 1-2 days Time-Based Coding :: [TOTAL MINUTES] spent with patient and on the chart (including review of chart, obtaining history, exam, reviewing outside data, placing orders, documenting exam and treatment plan, and counseling patient) on [DATE]. Quality VTE Deep Vein Thrombosis/Pulmonary Embolism Present on Admission: No
[2024-05-10 07:33] LABS: Add Manual Diff / Slide Review NO; Basophils Absolute Auto 200 /uL (0-100); Basophils Percent Auto 2.2 % (0-2); Eosinophils Absolute Auto 100 /uL (0-450); Eosinophils Percent Auto 0.8 % (2-4); Hematocrit 40.6 % (41-53); Hemoglobin 13.8 g/dL (13.5-17.5); Lymphocytes Absolute Auto 2200 /uL (1100-4500); Lymphocytes Percent Auto 23.5 % (25-40); Mean Corpuscular Hemoglobin 30.5 PG (26-34); Mean Corpuscular Volume 89.6 fL (80-100); Monocytes Absolute Auto 700 /uL (0-900); Monocytes Percent Auto 7.1 % (3-14); Neutrophils Absolute Auto 6400 /uL (1500-7000); Neutrophils Percent Auto 66.4 % (50-75); Platelet Count 360 X10^3/uL (150-400); Red Blood Cell Count 4.54 X10^6/uL (4.5-5.9); Red Cell Distribution Width 13.2 % (11.6-14.8); White Blood Cell Count 9.6 X10^3/uL (4.5-11.0)
[2024-05-10 07:38] LABS: Hemoglobin A1C% w Est Avg Glu 5.2 % (4.0-6.0)
[2024-05-10 07:39] LABS: Cholesterol 168 mg/dL (140-199); HDL Cholesterol 55 mg/dL (40-60); LDL Cholesterol Calculated 95 mg/dL (<100); Triglycerides 89 mg/dL (35-150)
[2024-05-10 07:40] LABS: BUN Creatinine Ratio 18.8 (6-22); Blood Urea Nitrogen 13 mg/dL (9-20); Carbon Dioxide 22 mmol/L (22-32); Chloride 105 mmol/L (98-107); Estimated Glomerular Filt Rate > 60 mL/min (>60); Glucose 106 mg/dL (70-100); HEMOLYSIS < 15 (0-50); Potassium 4.1 mmol/L (3.4-5.1); Sodium 135 mmol/L (137-145)
[2024-05-10] MEDS: HEPARIN 5,000 UNIT/ML VIAL 5000 UNIT SUBCUT ×2 (08:41→20:45)
[2024-05-10] MEDS: ASPIRIN EC 81 MG TABLET PO (08:41)
[2024-05-10 09:44] LABS: Ur Creatinine Normal (Normal); Ur Specific Gravity Normal (Normal); Urine Amphetamines Negative (Negative); Urine Barbiturates Negative (Negative); Urine Benzodiazepines Negative (Negative); Urine Cocaine Negative (Negative); Urine MDMA Negative (Negative); Urine Methadone Negative (Negative); Urine Methamphetamines Negative (Negative); Urine Opiates Negative (Negative); Urine Oxycodone Negative (Negative); Urine Phencyclidine Negative (Negative); Urine THC Positive (Negative); Urine Tricyclic Antidepressant Negative (Negative); Urine pH Normal (Normal)
--- NOTE | 2024-05-10 11:15 | DI.ECHO.S_ITS ---
[facility]---------+ [facility] : : [address] : : [place] : : [id number] : : Phone: [phone] Echocardiogram Report + + :Name: TRISTEN RIDER Study Date: 05/11/2024 Height: 72 in : :[facility] ReadingLocation: Weight: 300 lb : : Gender: Male BSA: 2.5 m2 : :: 1995 Age: 28 yrs BP: 136/65 mmHg: :Reason For Study: TIA : :Ordering Physician: NORIS, : :RALEIGH FOSTER Performed By: Ellen Lamb : :Referring: RALEIGH HAMM : + + Interpretation Summary 1) Normal left ventricular thickness, size, wall motion, and systolic function (EF 60-65%). 2) Normal right ventricular size and function. 3) No significant valvular abnormalities. 4) Injection of contrast documented no interatrial shunt. 5) No prior Echo available for comparison. Procedure: A two-dimensional transthoracic echocardiogram with color flow and Doppler was performed. The study quality was technically difficult. A saline contrast injection was performed to assess for cardiac shunting. The injection was performed through an intravenous line in the right arm. A contrast injection of Definity was performed to improve assessment of LV function. There is no prior echocardiogram noted for this patient. The patient was in sinus rhythm with heart rates between 79-87 bpm during the exam. Left Ventricle: The left ventricle is normal in size and wall thickness. The ejection fraction is estimated to be 60-65%. Left ventricular systolic function appears normal without focal wall motion abnormalities. Right Ventricle: The right ventricle is normal in size and function. Atria: The left atrial size is normal. Right atrial size is normal. Injection of contrast documented no interatrial shunt. Mitral Valve: The mitral valve is normal in structure and function. There is no mitral regurgitation noted. Aortic Valve: The aortic valve opens well. There is no aortic valve stenosis. No aortic regurgitation is present. Tricuspid Valve: The tricuspid valve is normal in structure and function. There is trace tricuspid regurgitation. Pulmonary artery pressures cannot be estimated because of the lack of a measurable TR jet velocity. Pulmonic Valve: The pulmonic valve is not well seen, but is grossly normal. There is no pulmonic valvular regurgitation. Great Vessels: The aortic root is normal size. The dimensions of the ascending aorta are normal. The aortic arch is normal in size. The IVC is of normal diameter and collapses greater than 50% with a sniff. This suggests a low right atrial pressure of 3 mm Hg. Pericardium/ Pleura There is no pericardial effusion. There is no pleural effusion. MMode/2D Measurements & Calculations LVIDd: 5.4 cm LVOT diam: 2.5 cm LVIDs: 3.3 cm Ao root diam: 3.8 cm FS: 38.1 % asc Aorta Diam: 3.3 cm IVSd: 0.83 cm Ao Arch Diam (Prox Trans): 3.0 cm LVPWd: 0.79 cm LV mancini. diameter/BSA (cm/m^2): 2.1 LV sys. diameter/BSA (cm/m^2): 1.3 LA A2 area: 15.0 cm2 RA long axis: 4.2 cm LA A4 area: 15.2 cm2 RA area: 14.8 cm2 LA length (vol): 4.6 cm RA vol: 44.2 ml LA vol: 42.4 ml RA : 17.5 ml/m2 LA vol index: 16.8 ml/m2 IVC diam: 1.6 cm RVD1 (basal): 2.9 cm TAPSE: 2.4 cm Doppler Measurements & Calculations Ao V2 max: 134.8 cm/sec LVOT Max Abdulkadir: 111.6 cm/sec Ao V2 mean: 96.1 cm/sec LV V1 max P.0 mmHg Ao max P.3 mmHg LV V1 VTI: 20.3 cm Ao mean P.1 mmHg KAIVTHA(I,D): 4.0 cm2 Ao V2 VTI: 24.4 cm KAVITHA(V,D): 4.0 cm2 sev ratio: 0.83 KAVITHA indexed to BSA (cm^2/m^2): 1.6 MV E max abdulkadir: 80.3 cm/sec PA V2 max: 106.3 cm/sec MV A max abdulkadir: 54.2 cm/sec PA V2 mean: 78.1 cm/sec MV E/A: 1.5 PA mean P.7 mmHg Med Peak E' Abdulkadir: 9.9 cm/sec PA pr(Accel): 32.8 mmHg E/E' med: 8.1 Lat Peak E' Abdulkadir: 8.6 cm/sec E/E' lat: 9.3 E/e' average: 8.7 MV dec time: 0.16 sec MVA(VTI): 4.2 cm2 MV V2 mean: 60.5 cm/sec SV(LVOT): 97.4 ml MV mean P.6 mmHg MV V2 VTI: 23.0 cm Reading Physician:02:01 PM
--- NOTE | 2024-05-10 11:35 | PT.IIE ---
Surgical History (Last Reviewed 09/04/23 @ 14:14 by Miguel Avendano DO) Anesthesia History of endoscopy (~2019) History of knee surgery (~2010) History of tonsillectomy (~1999) Medical History (Last Reviewed 09/04/23 @ 14:14 by Miguel Avendano DO) Allergies Anxiety Asthma Autism High risk sexual behavior History of depressive symptoms Obesity Social anxiety disorder Well adult on routine health check Physical Therapy Inpatient Evaluation/Re-Eval M1 PT/OT-IP Prior Functional Status Start: 05/10/24 12:51 Freq: NEEDED Status: Active Protocol: Document 05/10/24 11:35 AB (Rec: 05/10/24 13:10 AB [id number]) Medical Review Prior Functional Status Medical History Reviewed Yes Communication able to make needs known Mobility and Gait pt stated that he is independent with all mobilities and ambulation without AD Social History Household Members family Living Arrangements House Number of Floors (Floors) Two Floors Number of Stairs To Enter/Railing? 2 steps without rails to enter the house 2 flights of stairs with L rail ascending Home Environment High Toilet,Walk in Shower,Tub /Shower Home Equipment Hand Held Shower,Grab Bars In Shower Additional Social History Comment pt lives with his father M2 PT-IP Current Condition Start: 05/10/24 12:51 Freq: NEEDED Status: Active Protocol: Document 05/10/24 11:35 AB (Rec: 05/10/24 13:10 AB [id number]) Physical Therapy Current Condition Current Condition Evaluation Date 05/10/24 Treatment Diagnosis r/o CVA; difficulty in walking Onset Date 05/10/24 M3 PT-IP Subjective Start: 05/10/24 12:51 Freq: NEEDED Status: Active Protocol: Document 05/10/24 11:35 AB (Rec: 05/10/24 13:10 AB [id number]) Subjective Physical Therapy Visit Type Type Initial Evaluation Visit Start Time 11:35 Visit Stop Time 12:00 Number of SUPERVISOR PRE WAVE Visits 0 Physical Therapy Visit Comments Patient Comments agreeable to do PT Therapy Pain Assessment Pain When Pain Assessed At Rest Pain Present Pain Present Pain Reported Location Head Scale Used lightheadedness; spinning; pain scale not stated Left Chest Scale Used pain scale not stated M4 PT-IP Mobility and Gait Start: 05/10/24 12:51 Freq: NEEDED Status: Active Protocol: Document 05/10/24 11:35 AB (Rec: 05/10/24 13:10 AB [id number]) PT-Bed Mobility Assessment Supine to Sit Supine to Sit Independent Sit to Supine Sit to Supine Independent PT-Transfer Assessment Sit to and From Stand Sit to and from Stand Standby Assistance,Use of Upper Extremities Equipment Transfer Assistive Device None Orthotic/Prosthetic Devices or Brace: No Transfers Transfer Destination Bed,Chair Transfer Technique ambulated Transfer Ability Level of Assist Standby Assistance,1 Person Assistance,Use of Upper Extremities Comments Mobility Comments pt sitting on the chair and agreed to do PT. pt's dad in room. obtained PLOF and home set up. pt c/o slight numbness on L side of the body . c/o lightheadedness/spinning worse with head turning. checked for nystagmus but unclear. BP: 135/68 completed sit to stand from the chair SBA and ambulated in room ~ 30 ft without AD SBA. unsteady gait but without LOB. pt sat on EOB and completed bed mobility independently. pt ambulated back to the chair and rested. pt agreed to do steps. completed up/down step stool without AD SBA. repeated x 2 sets. pt sat back on chair. pt's dad will assist pt as needed. table and call light within reach. MRI result is negative for CVA . pt stated that he had a tooth infection before and doctor is now is pending blood culture to see if he has an infection affecting current medical condition. informed pt and dad to see if spinning persists even after the doctor address possible infection to go to outpt vestibular PT for further assessment. both understood. Gait Assessment Gait Gait Assistance Required: Standby Assistance Distance (Feet) 30 Able to Maintain Weight Bearing Status Yes During Gait Assistive Devices Assistive Device None Orthotic/Prosthetic Devices or Brace: No Gait Deviations General Gait Pattern Ataxic,Decreased Stride Length ,Wide Based Gait Factors Limiting Gait Function Factors Limiting Gait Function Decreased Activity Tolerance, Decreased Sensation Stair Climbing Assessment Evaluation Level of Assist On Stairs Standby Assistance Devices Stair Climbing Assistive Devices None Technique/Endurance Stair Climbing Direction Ascend and Descend Stair Climbing Technique Step to Step Number of Steps Climbed 1 Query Text: Stair Climbing Set # Repetitions (reps) 2 PT-Balance Assessment Sitting Balance and Reactions Static Sitting Balance Ability Normal Dynamic Sitting Balance Ability Normal Standing Balance and Reactions Static Standing Balance Ability Good Dynamic Standing Balance Ability Good M5 PT-IP Objective Assessments Start: 05/10/24 12:51 Freq: NEEDED Status: Active Protocol: Document 05/10/24 11:35 AB (Rec: 05/10/24 13:10 AB [id number]) Orientation Orientation/Cognition Level of Alertness Alert Orientation Name,Age,Birthday,Month,Date, Year,Day of Week,Place, Situation Language Function Ability No Deficits Noted Safety Awareness Understands Safety Issues Memory Description No Deficits Noted Gross Range of Motion Lower Extremity ROM Assessment Within Functional Limits Strength Lower Extremity Strength Assessment Within Functional Limits Sensation Assessment Sensation Sensation Description Numbness Comments Sensation Comments slight decrease sensation on L side of the body per pt Muscle Tone Muscle Tone WNL Yes M6 PT-IP Treatment Start: 05/10/24 12:51 Freq: NEEDED Status: Active Protocol: Document 05/10/24 11:35 AB (Rec: 05/10/24 13:10 AB [id number]) Physical Therapy Treatment Education Education Provided Safety M7 PT-IP Assessment and Plan Start: 05/10/24 12:51 Freq: NEEDED Status: Active Protocol: Document 05/10/24 11:35 AB (Rec: 05/10/24 13:10 AB [id number]) PT Summary Assessment and Plan Potential Rehabilitation Potential Fair Status of Condition at Evaluation Stable Summary Impairments Gait Assessment Summary pt is a 28 y/o M who presented with L sided numbness and weakness and also c/o chest pain. pt admitted to R/O CVA. MRI is negative for CVA. pt requiring SBA for transfers and ambulation without AD. pt with c/o lightheadedness/ spinning sensation affecting balance and pt presents with unsteady gait but without LOB. pt lives and his dad and [employer] will be able to assist pt if needed. no further PT intervention indicated at this time. Frequency of Treatment Frequency Of Treatment Discharge Recommendations To Nursing Amount of Assist Needed Standby Assistance Discharge Recommendations PT Discharge Recommendations Home with Assistance Transportation Needs at Discharge Private Vehicle
--- NOTE | 2024-05-10 13:37 | CM.DANOTE ---
DCP Assessment Note pt is a 28yo M here following left sided deficit/chest pain. concerns about a stroke. PMH of autism/asthma. PCP [facility] Alberto Schneider [facility] and [employer] MACHINE ATTENDANT reviewed EMR. per hospitalist in morning rounds, pt MRI negative for a stroke. Per chart, echo pending for tomorrow. Per RN, pt mobility/deficits better but not entirely back to normal. MACHINE ATTENDANT met with pt and family in room and introduced self and role. pt pleasant and chatty. lives with father in [place]. pt reports feeling better. currently not employed. father helps at home with IADLs as needed. Pt and family deny and CM/DCP needs at this time. agreeable to this MACHINE ATTENDANT alerting TCM team of admission. eager to go home but okay with staying another night if needed. MACHINE ATTENDANT messaged TCM team with notice of admission. P: dc home with family support when medically stable and close OP f/u recommended. CM team will continue to follow as needed CHAPARRITA Sparrow Discharge Planning/Care Management CM Discharge Assessment Start: 05/10/24 13:36 Freq: Status: Active Protocol: Document 05/10/24 13:36 (Rec: 05/10/24 13:37 [id number]) Discharge Planning Assessment Assigned Sales Account Director CHAPARRITA Rolle DPOA/Assigned Designee Name father Puentes Contact Information [phone] Advance Directives? No History Provided By Patient Prior Living Arrangements House Household Members family Independent with ADL's Yes Is patient alert and oriented? Yes Barriers to Discharge No Discharge Plan Home Transportation Arrangement family in [place] Referrals Initiated None needed Whiteboard Updated in Patient Room with Yes name and ext. # of Sales Account Director Review Status In Process Please Provide Date Initial DC 05/10/24 Assessment Was Performed Next Review Type Continued Stay Review
--- NOTE | 2024-05-10 16:49 | P.HP_ITS ---
History of Present Illness History of Present Illness Date Patient Seen: 05/10/24 Time Patient Seen: 10:30 Chief complaint: thinks he's having heart attack Narrative: This is a 28 year old male with PMH of autism and mild intermittent astham who presented with complaint of acute onset of left sided weakness, numbness. Admitted initially by overnight hospitalist early this morning. He states that he had difficulty yesterday moving his left leg, arm which improved in about 2 hours. He also reported decreased sensation which is continuing today on his left side. He also feels his mouth is numb and feels like it is droopy. Initial evaluation was unremarkable. CTs and MRI today have since been negative. He has no back pain, no saddle anesthesia or bowel/bladder incontinence. He denies fever or chills. He does report recent tooth extraction one week ago and has been on augmentin since. He has no pain in his mouth today. Labs are fairly unremarkable, no leukocytosis or other notable abnormalities. Urine tox was positive for marijuana. He did well with therapies today. [facility] Medical History High risk sexual behavior Well adult on routine health check Social anxiety disorder Autism Asthma Allergies Obesity History of depressive symptoms Anxiety Surgical History Anesthesia History of endoscopy (~2019) History of tonsillectomy (~1999) History of knee surgery (~2010) Family History Mother Cancer Glioblastoma Grandfather History of heart disease Social History household members: family Smoking Status: Never smoker Meds Home Medications and Allergies Home Medications Medication Instructions Recorded Confirmed Type albuterol sulfate 90 mcg/actuation 1 inh inhalation QID PRN shortness 09/04/23 05/10/24 Rx aerosol inhaler of breath or wheezing #6.7 grams fluticasone furoate 27.5 1 spray intranasal DAILY PRN nasal 09/04/23 05/10/24 Rx mcg/actuation nasal congestion #9.1 mL spray,suspension amoxicillin 500 mg-potassium 1 tab PO Q6H 05/10/24 05/10/24 History clavulanate 125 mg tablet Allergies Allergy/AdvReac Type Severity Reaction Status Date / Time No Known Drug Allergies Allergy Verified 09/04/23 13:40 Review of Systems Review of Systems Narrative: All other systems reviewed with the patient and are negative unless otherwise stated. Exam Vital Signs (past 8 hours): - 05/10/24 08:58 Temperature 97.5 F L Pulse Rate 94 H Respiratory Rate 18 Blood Pressure 141/73 H Pulse Oximetry 96 Oxygen Delivery Method Room Air Oxygen Flow Rate 0 Narrative Exam Narrative: General:? Patient is well developed and well nourished, in no distress at this time. HEENT:? Normocephalic, atraumatic, extraocular muscles intact, oral pharynx is clear and mucous membranes are moist. Neck: supple and symmetric, trachea is midline, no cervical adenopathy. Negative for JVD Chest:? Normal AP diameter and contour without kyphoscoliosis, no tachypnea, equal chest rise bilaterally. Lungs:? CTA b/l no wheezing rhonchi or rales. Cardio:?RRR no m/r/g. Abdomen: S NT ND. No CVA tenderness. Musculoskeletal:? Muscle strength and tone are equal within normal limits, no deformity. Extremities: No edema or joint effusions. No cyanosis or clubbing. Skin:? Pale,? Warm to touch,dry and intact without rashes, ulcerations or petechiae.? Neuro:? Alert and orientated x3,? sensation to touch intact in all extremities though he reports diminished on the left compared to the right, no gross deficits noted of cranial nerves. Psych:? Patient has a well-kept appearance, appropriate affect, mental status attitude thought context and judgment are appropriate for age. Objective Labs 05/10/24 07:21 05/10/24 07:21 Labs: Laboratory Results - last 24 hr 05/10/24 05/10/24 05/10/24 00:25 02:35 07:21 WBC 13.2 H 9.6 RBC 4.92 4.54 Hgb 14.8 13.8 Hct 44.1 40.6 L MCV 89.6 89.6 MCH 30.1 30.5 MCHC 33.5 34.0 RDW 13.3 13.2 Plt Count 454 H 360 Neut % (Auto) 55.6 66.4 Lymph % (Auto) 33.3 23.5 L [place] % (Auto) 8.9 7.1 Eos % (Auto) 1.6 L 0.8 L Baso % (Auto) 0.6 2.2 H Neut # (Auto) 7300 H 6400 Lymph # (Auto) 4400 2200 [place] # (Auto) 1200 H 700 Eos # (Auto) 200 100 Baso # (Auto) 100 200 H PT 10.9 INR 1.0 APTT 32 Sodium 138 135 L Potassium 3.6 4.1 Chloride 105 105 Carbon Dioxide 20 L 22 BUN 12 13 Creatinine 0.87 0.69 Estimated GFR > 60 > 60 BUN/Creatinine Ratio 13.8 18.8 Glucose 119 H 106 H Hemoglobin A1c 5.2 Calcium 9.1 9.0 Total Bilirubin 0.5 AST 33 ALT 55 H Alkaline Phosphatase 84 Total Creatine Kinase 100 Troponin I < 0.012 < 0.012 Total Protein 7.4 Albumin 4.4 Globulin 3.0 Albumin/Globulin Ratio 1.5 Triglycerides 89 Cholesterol 168 LDL Cholesterol, Calc 95 HDL Cholesterol 55 U Opiates 300ng/mL cut Ur Oxycodone Screen Urine Methadone Screen Ur Barbiturates Screen U Tricyclic Antidepress Ur Phencyclidine Scrn Ur Amphetamines Screen U Methamphetamines Scrn Ur MDMA Scrn (Ecstasy) U Benzodiazepines Scrn Urine Cocaine Screen U Marijuana (THC) Screen Urine pH Urine Specific [place] Ethyl Alcohol < 10 Ur Creatinine 05/10/24 09:30 WBC RBC Hgb Hct MCV MCH MCHC RDW Plt Count Neut % (Auto) Lymph % (Auto) [place] % (Auto) Eos % (Auto) Baso % (Auto) Neut # (Auto) Lymph # (Auto) [place] # (Auto) Eos # (Auto) Baso # (Auto) PT INR APTT Sodium Potassium Chloride Carbon Dioxide BUN Creatinine Estimated GFR BUN/Creatinine Ratio Glucose Hemoglobin A1c Calcium Total Bilirubin AST ALT Alkaline Phosphatase Total Creatine Kinase Troponin I Total Protein Albumin Globulin Albumin/Globulin Ratio Triglycerides Cholesterol LDL Cholesterol, Calc HDL Cholesterol U Opiates 300ng/mL cut Negative Ur Oxycodone Screen Negative Urine Methadone Screen Negative Ur Barbiturates Screen Negative U Tricyclic Antidepress Negative Ur Phencyclidine Scrn Negative Ur Amphetamines Screen Negative U Methamphetamines Scrn Negative Ur MDMA Scrn (Ecstasy) Negative U Benzodiazepines Scrn Negative Urine Cocaine Screen Negative U Marijuana (THC) Screen Positive H Urine pH Normal Urine Specific [place] Normal Ethyl Alcohol Ur Creatinine Normal Assessment & Plan Assessment & Plan narrative: Left unilateral weakness, and numbness, transient, improved. - differentials include TIA, seizure, or infectious etiologies though imaging does not show signs of this. Other than obesity no obvious risk factors. - no blood cultures obtained, will get blood cultures to rule out infection possibility given dental procedure 1 week ago. - at this time, antiplatelets were not recommended by tele-stroke providers if MRI was negative. - MRI was negative for acute infarcts. - PT evaluation recommended discharge home. Mild intermittent asthma, No sign of acute attack. Monitor for now. Recent tooth extraction - continue ouatpatient augmentin DVT PPx hep SQ Code status full code Code: Full, surrogate is patient's father DVT: Lovenox daily I have utilized all available immediate resources to obtain, update, or review the patient's current medications. Dispo: observation, likely home tomorrow if negative blood cultures and continued improvement, possibly without a known cause for his presentation. Additional history obtained via discussions with the overnight provider. These discussions contributed to the creation of the above assessment and plan. I have reviewed patient's presenting documentation, labs, and imaging personally. Time-Based Coding :: [TOTAL MINUTES] spent with patient and on the chart (including review of chart, obtaining history, exam, reviewing outside data, placing orders, documenting exam and treatment plan, and counseling patient) on [DATE]. Quality VTE Deep Vein Thrombosis/Pulmonary Embolism Present on Admission: No
[2024-05-11 01:30] VITALS: BP 129/81; PULSE 99; RESP 22; TEMP 35.9; O2SAT 95
[2024-05-11 03:00] VITALS: BP 148/97; PULSE 82; RESP 22; O2SAT 95
--- NOTE | 2024-05-11 03:00 | PC.NURSE ---
Pt complaining of more LUE weakess and pain to LUE (back of upper arm). Dizziness when sitting on side of bed. feels like a film on my L eye NIH is 4. Previously it was 3. VS taken and charted. Notified Dr Ernandez, no new orders at this time. Father at bedside. Pt back in bed, call light in reach.
[2024-05-11 04:44] VITALS: BP 136/65; PULSE 67; RESP 18; TEMP 35.7; O2SAT 93
[2024-05-11 05:32] LABS: Add Manual Diff / Slide Review NO; Basophils Absolute Auto 0 /uL (0-100); Basophils Percent Auto 0.4 % (0-2); Eosinophils Absolute Auto 200 /uL (0-450); Eosinophils Percent Auto 2.5 % (2-4); Hematocrit 40.9 % (41-53); Hemoglobin 13.9 g/dL (13.5-17.5); Lymphocytes Absolute Auto 2500 /uL (1100-4500); Lymphocytes Percent Auto 36.9 % (25-40); Mean Corpuscular HGB Conc 33.9 % (30-36); Mean Corpuscular Hemoglobin 30.3 PG (26-34); Mean Corpuscular Volume 89.4 fL (80-100); Monocytes Absolute Auto 600 /uL (0-900); Monocytes Percent Auto 8.3 % (3-14); Neutrophils Absolute Auto 3500 /uL (1500-7000); Neutrophils Percent Auto 51.9 % (50-75); Platelet Count 341 X10^3/uL (150-400); Red Blood Cell Count 4.58 X10^6/uL (4.5-5.9); Red Cell Distribution Width 13.4 % (11.6-14.8); White Blood Cell Count 6.7 X10^3/uL (4.5-11.0)
[2024-05-11 05:34] LABS: BUN Creatinine Ratio 20.3 (6-22); Blood Urea Nitrogen 14 mg/dL (9-20); Carbon Dioxide 23 mmol/L (22-32); Chloride 104 mmol/L (98-107); Estimated Glomerular Filt Rate > 60 mL/min (>60); Glucose 100 mg/dL (70-100); HEMOLYSIS < 15 (0-50); Magnesium 2.1 mg/dL (1.6-2.3); Potassium 4.1 mmol/L (3.4-5.1); Sodium 134 mmol/L (137-145)
[2024-05-11] MEDS: ONDANSETRON 4 MG/2 ML INJ IV (05:46)
[2024-05-11 06:12] LABS: TSH w/ Reflex to FT4 3.18 uIU/mL (0.47-4.68)
[2024-05-11] MEDS: ASPIRIN EC 81 MG TABLET PO (08:58)
[2024-05-11] MEDS: HEPARIN 5,000 UNIT/ML VIAL 5000 UNIT SUBCUT (08:59)
--- NOTE | 2024-05-11 10:55 | P.DS_ITS ---
History of Present Illness History of Present Illness Date Patient Seen: 05/11/24 Time Patient Seen: 10:55 Chief complaint: thinks he's having heart attack Narrative: This is a 28 year old male with PMH of autism and mild intermittent astham who presented with complaint of acute onset of left sided weakness, numbness. Admitted initially by overnight hospitalist early this morning. He states that he had difficulty yesterday moving his left leg, arm which improved in about 2 hours. He also reported decreased sensation which is continuing today on his left side. He also feels his mouth is numb and feels like it is droopy. Initial evaluation was unremarkable. CTs and MRI today have since been negative. He has no back pain, no saddle anesthesia or bowel/bladder incontinence. He denies fever or chills. He does report recent tooth extraction one week ago and has been on augmentin since. He has no pain in his mouth today. Labs are fairly unremarkable, no leukocytosis or other notable abnormalities. Urine tox was positive for marijuana. He did well with therapies today. Discharge Providers Provider Date of admission: 05/10/24 04:22 Discharge Date: 05/11/24 Primary care physician: Miguel Avendano DO Consults: 05/10/24 04:56 Consult to Occupational Therapy Evaluate & Treat Comment: Physician Instructions: Evaluate and treat Consult to Physical Therapy Evaluate & Treat Comment: Physician Instructions: Evaluate and Treat Discharge provider: Sabas Zhang DO Summary Hospital Course Discharge Diagnosis: Left unilateral weakness, and numbness, transient, improved. Mild intermittent asthma Recent tooth extraction Hospital Course: This is a 28 year old male with PMH of mild intermittent asthma, autism who presented with left sided weakness and numbess. CT of the head, CTA of the head and neck and brain MRI were all unremarkable without evidence of hemorrhage or acute infarcts. His weakness resolved quickly but he continued to endorse subjective decreased sensation on the left. Given a recent tooth extraction blood cultures were drawn but remain negative at the time of the writing of this discharge summary and patient had been on augmentin. Echocardiogram revealed a normal heart with no PFO. The etiology for his ongoing numbness is unclear. Differentials remain MR negative CVA. CT imaging did not show any obvious spinal abnormalities, though this would typically have more localized symptoms. He had no ongoing infectious signs or symptoms either. Recommend outpatient follow up with PCP and referral to outpatient neurology if his symptoms persist. Discussed risks and benefits of possible secondary stroke prevention after tele-stroke service recommended against it with patient and father, whom were in agreement that the benefits of secondary prevention outweigh possible risks at this time. Aspirin and statin therapy were prescribed. No other medications were changed at the time of discharge. Time Spent with Patient Time spent: Greater than 30 minutes Exam Vital Signs (past 8 hours): - 05/11/24 03:00 05/11/24 04:44 Temperature 96.2 F L Pulse Rate 82 67 Respiratory Rate 22 18 Blood Pressure 148/97 H 136/65 Pulse Oximetry 95 93 Oxygen Flow Rate 0 0 Oxygen Delivery Method Room Air Oxygen Flow Rate 0 Narrative Exam Narrative: General:? Patient is well developed and well nourished, in no distress at this time. HEENT:? Normocephalic, atraumatic, extraocular muscles intact, oral pharynx is clear and mucous membranes are moist. Neck: supple and symmetric, trachea is midline, no cervical adenopathy. Negative for JVD Chest:? Normal AP diameter and contour without kyphoscoliosis, no tachypnea, equal chest rise bilaterally. Lungs:? CTA b/l no wheezing rhonchi or rales. Cardio:?RRR no m/r/g. Abdomen: S NT ND. No CVA tenderness. Musculoskeletal:? Muscle strength and tone are equal within normal limits, no deformity. Extremities: No edema or joint effusions. No cyanosis or clubbing. Skin:? Pale,? Warm to touch,dry and intact without rashes, ulcerations or petechiae.? Neuro:? Alert and orientated x3,? sensation to touch intact in all extremities though he reports diminished on the left compared to the right, no gross deficits noted of cranial nerves. Psych:? Patient has a well-kept appearance, appropriate affect, mental status attitude thought context and judgment are appropriate for age. Objective Labs 05/11/24 04:45 05/11/24 04:45 Labs: Laboratory Results - last 24 hr 05/11/24 04:45 WBC 6.7 RBC 4.58 Hgb 13.9 Hct 40.9 L MCV 89.4 MCH 30.3 MCHC 33.9 RDW 13.4 Plt Count 341 Neut % (Auto) 51.9 Lymph % (Auto) 36.9 [place] % (Auto) 8.3 Eos % (Auto) 2.5 Baso % (Auto) 0.4 Neut # (Auto) 3500 Lymph # (Auto) 2500 [place] # (Auto) 600 Eos # (Auto) 200 Baso # (Auto) 0 Sodium 134 L Potassium 4.1 Chloride 104 Carbon Dioxide 23 BUN 14 Creatinine 0.69 Estimated GFR > 60 BUN/Creatinine Ratio 20.3 Glucose 100 Calcium 9.0 Magnesium 2.1 TSH 3.18 PFSH Medical History High risk sexual behavior Well adult on routine health check Social anxiety disorder Autism Asthma Allergies Obesity History of depressive symptoms Anxiety Surgical History Anesthesia History of endoscopy (~2019) History of tonsillectomy (~1999) History of knee surgery (~2010) Family History Mother Cancer Glioblastoma Grandfather History of heart disease Social History household members: family Smoking Status: Never smoker Discharge Plan Discharge Plan Patient Disposition: Home Provider Discharge Comment: You were admitted to the hospital with stroke like symptoms. You did well with therapies but still have some numbness. MRI was negative for a stroke, so it is not entirely clear the etiology of your symptoms. If your symptoms continue, recommend PCP follow up next week ideally with referral to neurologist for further evaluation. For now I recommend treatment as if this was a stroke with medications for prevention. Discharge orders & Medications Prescriptions: New atorvastatin 40 mg tablet 40 mg PO BEDTIME 90 Days Qty: 90 0RF aspirin 81 mg tablet,delayed release (DR/EC) 81 mg PO DAILY 90 Days Qty: 90 0RF Continued albuterol sulfate 90 mcg/actuation HFA aerosol inhaler 1 inh inhalation QID PRN (Reason: shortness of breath or wheezing) Qty: 6.7 3RF fluticasone furoate 27.5 mcg/actuation spray,suspension 1 spray intranasal DAILY PRN (Reason: nasal congestion) Qty: 9.1 1RF Rx Instructions: into each nostril amoxicillin-pot clavulanate 500-125 mg tablet 1 tab PO Q6H Follow up/Referrals: Avendano,Miguel T, DO [Primary Care Provider] - Diet/Activity/Treatments Diet: Diet as Tolerated and Regular Activity: As tolerated, no restrictions. Visit Report/Discharge Packet Stand Alone Forms: Patient Portal/API, Stroke Signs & Symptoms Discharge Data Primary Care Provider: Miguel Avendano Attending Provider: Dhaval Ernandez Admit Date/Time: 05/10/24 04:22 Quality VTE Deep Vein Thrombosis/Pulmonary Embolism Present on Admission: No
--- NOTE | 2024-05-11 12:49 | PC.NURSE ---
Discharge note: Patient discharged home per MD order. Discussed importance of F/U with PMD, new mediation adherence, and signs of worsening symptoms. Patient verbalized understanding of discharge instructions, home via private vehicle. Rx to be picked up on way home.
== END 2024-05-11 12:00 | disposition home or self-care (01) ==
LOC: ED 04:21 → AC 04:22
PROVIDERS: Internal Medicine; Admitting Provider Internal Medicine; Emergency Provider Emergency Medicine; PCP Family Medicine; Visit Provider Internal Medicine
DX: R07.9 Chest pain, unspecified (principal); R53.1 Weakness; E66.9 Obesity, unspecified; J45.20 Mild intermittent asthma, uncomplicated
CPT/HCPCS: 36415; 70450; 70496; 70498; 70551; 71275; 74174; 80048; 80053; 80061; 80305; 80320; 82550; 83036; 83735; 84443; 84484; 85025; 85610; 85730; 87040; 93005; 93306; 96372; 96374; 97161; 99284; 99291; G0378; J1644; J2405; Q9957; Q9967

== ENCOUNTER → 2024-11-10 11:12 | Outpatient (CLI) | payer OTHER, SELFPAY ==
[2024-05-10 05:13] VITALS: BMI 40.6
[2024-11-10 12:08] LABS: Alanine Aminotransferase 57 IU/L (<50); Albumin 4.4 g/dL (3.5-5.0); Albumin Globulin Ratio 1.8 (1.0-2.8); Alkaline Phosphatase 76 U/L (38-126); Aspartate Aminotransferase 30 IU/L (17-59); BUN Creatinine Ratio 24.4 (6-22); Bilirubin Total 0.6 mg/dL (0.2-1.3); Blood Urea Nitrogen 21 mg/dL (9-20); Calcium 9.5 mg/dL (8.4-10.2); Carbon Dioxide 27 mmol/L (22-32); Chloride 105 mmol/L (98-107); Cholesterol 114 mg/dL (140-199); Estimated Glomerular Filt Rate > 60 mL/min (>60); Globulin 2.4 g/dL (1.7-4.1); Glucose 101 mg/dL (70-99); HDL Cholesterol 44 mg/dL (40-60); HEMOLYSIS < 15 (0-50); LDL Cholesterol Calculated 56 mg/dL (<100); Potassium 5.1 mmol/L (3.4-5.1); Sodium 141 mmol/L (137-145); Total Protein 6.8 g/dL (6.3-8.2); Triglycerides 68 mg/dL (35-150)
== END ==
PROVIDERS: PCP Family Medicine; Referring Provider Family Medicine; Visit Provider Family Medicine
DX: G45.9 Transient cerebral ischemic attack, unspecified (principal); E66.01 Morbid (severe) obesity due to excess calories; Z68.41 Body mass index [BMI] 40.0-44.9, adult; Z79.899 Other long term (current) drug therapy
CPT/HCPCS: 36415; 80053; 80061

== ENCOUNTER 2025-05-16 13:29 | Emergency (ER) | payer OTHER, SELFPAY ==
[2024-05-10 05:13] VITALS: BMI 40.6
[2025-05-16] VITALS (7 sets, daily range): BP systolic 132–151; BP diastolic 69–87; PULSE 74–98; RESP 18; TEMP 36.9; O2SAT 96–99; BMI 46.1
--- NOTE | 2025-05-16 13:46 | ED.NAVMDI ---
HPI - Nausea/Vomiting/Diarrhea General Chief complaint: Nausea/Vomiting/Diarrhea Stated complaint: FREEMAN, diarrhea, stiffness, maybe ate recalled fruit Time Seen by Provider: 05/16/25 13:32 Source: patient Mode of arrival: Ambulatory History of Present Illness HPI Narrative: Patient is a healthy 29-year-old male presenting to day with ongoing diarrhea. He has had some joint pains nausea dizziness lightheadedness. He has had about 7 days of the area. Both he and another family member have had the same symptoms although his father seems to be getting a little bit better today he woke up with pretty severe joint pain. He has had nonbloody stools. They did get a notice from [employer] saying that the peaches were contaminated with listeria. They report that they did not eat very many of them because it did not taste very good through most of them out. However both of them have had ongoing diarrhea. Related Data Previous Rx's ?Medication ?Instructions ?Recorded albuterol sulfate 90 mcg/actuation 1 inh inhalation QID PRN shortness 09/04/23 aerosol inhaler of breath or wheezing #6.7 grams fluticasone furoate 27.5 1 spray intranasal DAILY PRN nasal 09/04/23 mcg/actuation nasal congestion #9.1 mL spray,suspension atorvastatin 40 mg tablet 40 mg PO BEDTIME #90 tabs 11/21/24 amoxicillin 500 mg capsule 500 mg PO TID #21 caps 05/16/25 Allergies Allergy/AdvReac Type Severity Reaction Status Date / Time No Known Drug Allergies Allergy Verified 05/16/25 13:36 Patient History Medical History Hyperlipemia TIA (transient ischemic attack) Stroke High risk sexual behavior Well adult on routine health check Social anxiety disorder Autism Asthma Allergies Obesity History of depressive symptoms Anxiety Surgical History Anesthesia History of endoscopy (~2019) History of tonsillectomy (~1999) History of knee surgery (~2010) Family History Mother Cancer Glioblastoma Grandfather History of heart disease Social History household members: family Smoking Status: Never smoker Smoking Status: Never smoker alcohol intake frequency: holidays/special occasions only Exam Initial Vital Signs Initial Vital Signs: Vital Signs Pulse Rate 95 H 05/16/25 13:34 Pulse Oximetry 99 05/16/25 13:34 GENERAL: Alert pleasant well-appearing 29-year-old and in no acute distress. HEENT: Head atraumatic,EOMI, pupils reactive, face symmetric, moist mucous membranes CARDIOVASCULAR: Regular rate and rhythm without murmurs, rubs or gallops. RESPIRATORY: Breath sounds equal bilaterally, no wheezes rales or rhonchi. ABDOMEN: Soft, nontender. Normoactive bowel sounds all 4 quadrants. No guarding or rebound. EXTREMITIES: Normal range of motion, no clubbing or edema. Neurovascularly intact NEUROLOGICAL: Alert and oriented x4.Normal gait and speech. Cranial nerves II through XII grossly intact. SKIN: Warm, dry, no laceration, no petechiae, no rashes or lesions. Course Orders Ordered: Discontinued Medications Amoxicillin (Amoxicillin 250 Mg Capsule) 500 mg PO NOW ONE Stop: 05/16/25 15:59 Last Admin: 05/16/25 16:05 Dose: 500 mg Documented By: LACY Sodium Chloride (Normal Saline 0.9%) 1,000 mls @ 1,000 mls/hr IV BOLUS ONE Stop: 05/16/25 14:43 Last Infusion: 05/16/25 16:06 Dose: Infused Documented By: Admin: 05/16/25 13:56 Dose: 1,000 mls/hr Documented By: LACY Ketorolac Tromethamine (Ketorolac 30 Mg/Ml Vial) 15 mg IV NOW ONE Stop: 05/16/25 13:45 Last Admin: 05/16/25 13:57 Dose: 15 mg Documented By: LACY Ondansetron HCl (Ondansetron 4 Mg/2 Ml Inj) 4 mg IV NOW PRN PRN Reason: Nausea And Vomiting Ondansetron HCl (Ondansetron 4 Mg Odt) 4 mg PO NOW PRN PRN Reason: Nausea And Vomiting Ondansetron HCl (Ondansetron 4 Mg/2 Ml Inj) 4 mg IV NOW ONE Stop: 05/16/25 13:45 Last Admin: 05/16/25 13:57 Dose: 4 mg Documented By: LACY Vital Signs Vital signs: Vital Signs - 8 hr 05/16/25 13:36 Temperature 98.5 F Pulse Rate 85 Respiratory Rate 18 Blood Pressure 148/82 H Pulse Oximetry 98 Oxygen Delivery Method Room Air MDM - Nausea/Vomiting/Diarrhea Lab Data 05/16/25 13:45 05/16/25 13:45 Labs: Lab Results 05/16/25 Range/Units 13:45 WBC 7.3 (4.5-11.0) X10^3/uL RBC 4.84 (4.5-5.9) X10^6/uL Hgb 14.5 (13.5-17.5) g/dL Hct 42.1 (41-53) % MCV 87.0 (80-100) fL MCH 29.9 (26-34) PG MCHC 34.3 (30-36) % RDW 13.2 (11.6-14.8) % Plt Count 339 (150-400) X10^3/uL Neut % (Auto) 59.7 (50-75) % Lymph % (Auto) 27.8 (25-40) % [place] % (Auto) 10.0 (3-14) % Eos % (Auto) 1.5 L (2-4) % Baso % (Auto) 1.0 (0-2) % Neut # (Auto) 4400 (2181-8923) /uL Lymph # (Auto) 2000 (4065-2990) /uL [place] # (Auto) 700 (0-900) /uL Eos # (Auto) 100 (0-450) /uL Baso # (Auto) 100 (0-100) /uL Sodium 137 (137-145) mmol/L Potassium 4.4 (3.4-5.1) mmol/L Chloride 102 (98-107) mmol/L Carbon Dioxide 26 (22-32) mmol/L BUN 19 (9-20) mg/dL Creatinine 0.78 (0.66-1.25) mg/dL Estimated GFR > 60 (>60) mL/min BUN/Creatinine Ratio 24.4 H (6-22) Glucose 97 (70-99) mg/dL Calcium 9.2 (8.4-10.2) mg/dL Total Bilirubin 0.5 (0.2-1.3) mg/dL AST 28 (17-59) IU/L ALT 43 (<50) IU/L Alkaline Phosphatase 76 (38-126) U/L Total Protein 7.6 (6.3-8.2) g/dL Albumin 4.5 (3.5-5.0) g/dL Globulin 3.1 (1.7-4.1) g/dL Albumin/Globulin Ratio 1.5 (1.0-2.8) Lipase 77 (23-300) U/L Urine Dip Bedside Urine Glucose Negative Bedside Urine Bilirubin - Negative Bedside Urine Ketone - Negative Urine Specific [place] 1.020 Bedside Urine Occult Blood - Negative Bedside Urine pH 6.0 Bedside Urine Protein - Negative Bedside Urine Urobilinogen - Negative Bedside Urine Nitrite - Negative Bedside Urine Leukocytes - Negative Esterase MDM Narrative Medical decision making narrative: Patient is a healthy 29-year-old male presenting today with ongoing diarrhea and joint pain. Vitals are stable abdomen is soft and nontender he does not have an acute abdomen or any peritoneal signs Blood work has been reviewed He has no leukocytosis no anemia Electrolytes are within normal limits glucose is 97 Bilirubin liver enzymes all within normal limits At this time he does not show any evidence of dehydration but is given a L of IV fluids Zofran and Toradol overall feeling much better and tolerating p.o. fluids. 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 He was unable to provide any kind of stool sample for us here. He is not having any significant headache or meningeal signs no concern for [employer] involvement. Low concern for sepsis and bacteremia. He is afebrile and has been afebrile. Discharge Plan Departure Patient Disposition: Home Clinical Impression: Gastroenteritis Instructions: DI for Bacterial Gastroenteritis -- Adult Activity Restrictions/Additional Instructions: *You have been diagnosed with gastroenteritis *What to do: At this time increase fluids as tolerated recommend Gatorade or Gatorade like product *Continue to take medications as directed Amoxicillin 500 mg 3 times a day for 7 days *Follow up with your primary care provider in 2-3 days or call [phone] *Return to ER if you should have [or] any new, worsening or concerning symptoms Prescriptions: New amoxicillin 500 mg capsule 500 mg PO TID Qty: 21 0RF No Action atorvastatin 40 mg tablet 40 mg PO BEDTIME Qty: 90 3RF albuterol sulfate 90 mcg/actuation HFA aerosol inhaler 1 inh inhalation QID PRN (Reason: shortness of breath or wheezing) Qty: 6.7 3RF fluticasone furoate 27.5 mcg/actuation spray,suspension 1 spray intranasal DAILY PRN (Reason: nasal congestion) Qty: 9.1 1RF Rx Instructions: into each nostril Referrals: Miguel Avendano DO [Primary Care Provider, Family Practice] Stand Alone Forms: Patient Portal/API
[2025-05-16 13:56] LABS: Add Manual Diff / Slide Review NO; Hematocrit 42.1 % (41-53); Hemoglobin 14.5 g/dL (13.5-17.5); Lymphocytes Absolute Auto 2000 /uL (1100-4500); Mean Corpuscular HGB Conc 34.3 % (30-36); Mean Corpuscular Hemoglobin 29.9 PG (26-34); Mean Corpuscular Volume 87.0 fL (80-100); Platelet Count 339 X10^3/uL (150-400)
[2025-05-16] MEDS: SODIUM CHLORIDE 0.9% 1,000 ML 1000 ML IV (13:56)
[2025-05-16] MEDS: ONDANSETRON 4 MG/2 ML INJ IV (13:57)
[2025-05-16] MEDS: KETOROLAC 30 MG/ML VIAL 15 MG IV (13:57)
[2025-05-16 14:13] LABS: Alanine Aminotransferase 43 IU/L (<50); Albumin 4.5 g/dL (3.5-5.0); Albumin Globulin Ratio 1.5 (1.0-2.8); Alkaline Phosphatase 76 U/L (38-126); Blood Urea Nitrogen 19 mg/dL (9-20); Calcium 9.2 mg/dL (8.4-10.2); Carbon Dioxide 26 mmol/L (22-32); Chloride 102 mmol/L (98-107); Estimated Glomerular Filt Rate > 60 mL/min (>60); Globulin 3.1 g/dL (1.7-4.1); Glucose 97 mg/dL (70-99); HEMOLYSIS < 15 (0-50); Lipase 77 U/L (23-300); Potassium 4.4 mmol/L (3.4-5.1); Sodium 137 mmol/L (137-145); Total Protein 7.6 g/dL (6.3-8.2)
[2025-05-16] MEDS: AMOXICILLIN 250 MG CAPSULE 500 MG PO (16:05)
== END 2025-05-16 16:17 | disposition home or self-care (01) ==
PROVIDERS: Emergency Provider Emergency Medicine; PCP Family Medicine
DX: K52.9 Noninfective gastroenteritis and colitis, unspecified (principal); R42 Dizziness and giddiness
CPT/HCPCS: 36415; 80053; 81003; 83690; 85025; 96361; 96374; 96375; 99284; J1885; J2405; J7030

== ENCOUNTER 2025-07-07 03:14 | Emergency (ER) | payer OTHER, SELFPAY ==
[2024-05-10 05:13] VITALS: BMI 40.6
[2025-07-07 03:22] VITALS: BP 144/92; PULSE 100; RESP 26; TEMP 37; O2SAT 93; BMI 46.1
--- NOTE | 2025-07-07 03:38 | ED_ITS ---
HPI - Nausea/Vomiting/Diarrhea General Chief complaint: Nausea/Vomiting/Diarrhea Stated complaint: Diarrhea, Fever, Fatigue Time Seen by Provider: 07/07/25 03:19 Source: patient Mode of arrival: Ambulatory History of Present Illness HPI Narrative: 29-year-old autistic male who started with diarrhea hourly a couple of days ago. His father who he lives with had cold-like symptoms prior to this episode. 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 Patient denies any other symptoms. He does not recall any unusual diet. Related Data Previous Rx's ?Medication ?Instructions ?Recorded albuterol sulfate 90 mcg/actuation 1 inh inhalation QI D PRN shortness 09/04/23 aerosol inhaler of breath or wheezing #6.7 g claudia fluticasone furoate 27.5 1 spray intranasal DAILY PRN nasal 09/04/23 mcg/actuation nasal congestion #9.1 mL spray,suspension atorvastatin 40 mg tablet 40 mg PO BEDTIME #90 tabs amoxicillin 500 mg capsule 500 mg PO TID #21 caps 11/08/09 ondansetron 4 mg disintegrating 4 mg PO Q6H PRN nausea and 07/07/25 tablet vomiting #14 tabs Allergies Allergy/AdvReac Type Severity Reaction Status Date / Time No Known Drug Allergies Allergy Verified 07/07/25 03:23 Review of Systems Review of Systems ROS Unobtainable: All systems reviewed & are unremarkable except as noted in HPI and below Patient History Medical History Hyperlipemia TIA (transient ischemic attack) Stroke High risk sexual behavior Well adult on routine health check Social anxiety disorder Autism Asthma Allergies Obesity History of depressive symptoms Anxiety Surgical History Anesthesia History of endoscopy (~2019) History of tonsillectomy (~1999) History of knee surgery (~2010) Family History Mother Cancer Glioblastoma Grandfather History of heart disease Social History household members: family Smoking Status: Never smoker Smoking Status: Never smoker alcohol intake frequency: holidays/special occasions only Exam Narrative Exam Narrative: General: Patient appears to be in no acute distress, acting appropriately Head: normocephalic, atraumatic, HEENT: Pupils equal round reactive, eyes tracking well, neck supple, no JVD Heart: regular rate and rhythm, no murmurs, rubs, or gallops heard Lungs: clear to auscultation, no adventitious sounds Abdomen: soft , nontender, nondistended, positive bowel sounds Neurological: no focal neurological signs, moving all extremities well, alert and oriented x3, Psych: good judgment ,good insight, mood is normal. Initial Vital Signs Initial Vital Signs: Vital Signs Temperature 98.6 F 07/07/25 03:22 Pulse Rate 100 H 07/07/25 03:22 Respiratory Rate 26 H 07/07/25 03:22 Blood Pressure 144/92 H 07/07/25 03:22 Pulse Oximetry 93 07/07/25 03:22 Oxygen Delivery Method Room Air 07/07/25 03:22 Course Orders Ordered: ED Orders 07/07/25 03:30 CBC Auto Diff [Complete Blood Count AUTO DIFF] Stat CMP [Comprehensive Metabolic Panel] Stat Lipase Stat 07/07/25 03:43 GI Panel (Film Array) Stat UA dip [Urinalysis Screen (Dip Only)] Stat Urine Microscopic Stat 07/07/25 05:30 Covid-19 + FLU A/B + RSV - PCR Stat Discontinued Medications Sodium Chloride (Normal Saline 0.9%) 1,000 mls @ 1,000 mls/hr IV BOLUS ONE Stop: 07/07/25 04:36 Last Infusion: 07/07/25 05:28 Dose: Infused Documented By: Admin: 07/07/25 03:47 Dose: 1,000 mls/hr Documented By: JOSIE Ondansetron HCl (Ondansetron 4 Mg/2 Ml Inj) 4 mg IV NOW ONE Stop: 07/07/25 03:39 Last Admin: 07/07/25 03:47 Dose: 4 mg Documented By: JOSIE Ondansetron HCl (Ondansetron 4 Mg/2 Ml Inj) 4 mg IV NOW ONE Stop: 07/07/25 04:27 Last Admin: 07/07/25 04:29 Dose: 4 mg Documented By: JOSIE Ondansetron HCl (Ondansetron 4 Mg Odt Prepack) 1 bottle MISC DIRECTED ONE Stop: 07/07/25 05:17 Last Admin: 07/07/25 05:27 Dose: 1 bottle Documented By: HNG Vital Signs Vital signs: Vital Signs - 8 hr 07/07/25 03:22 07/07/25 05:35 Temperature 98.6 F Pulse Rate 100 H 98 H Respiratory Rate 26 H 24 Blood Pressure 144/92 H 141/89 H Pulse Oximetry 93 97 Oxygen Delivery Method Room Air Room Air MDM - Nausea/Vomiting/Diarrhea Lab Data 07/07/25 03:30 07/07/25 03:30 Labs: Lab Results 07/07/25 07/07/25 07/07/25 Range/Units 03:30 03:43 05:30 WBC 4.5 (4.5-11.0) X10^3/uL RBC 4.71 (4.5-5.9) X10^6/uL Hgb 14.2 (13.5-17.5) g/dL Hct 40.5 L (41-53) % MCV 85.9 (80-100) fL MCH 30.1 (26-34) PG MCHC 35.0 (30-36) % RDW 13.2 (11.6-14.8) % Plt Count 241 (150-400) X10^3/uL Neut % (Auto) 67.0 (50-75) % Lymph % (Auto) 10.7 L (25-40) % [facility] % (Auto) 21.5 H (3-14) % Eos % (Auto) 0.1 L (2-4) % Baso % (Auto) 0.7 (0-2) % Neut # (Auto) 3000 (8158-2425) /uL Lymph # (Auto) 500 L (2326-8567) /uL [facility] # (Auto) 1000 H (0-900) /uL Eos # (Auto) 0 (0-450) /uL Baso # (Auto) 0 (0-100) /uL Sodium 133 L (137-145) mmol/L Potassium 3.9 (3.4-5.1) mmol/L Chloride 99 (98-107) mmol/L Carbon Dioxide 24 (22-32) mmol/L BUN 11 (9-20) mg/dL Creatinine 0.78 (0.66-1.25) mg/dL Estimated GFR > 60 (>60) mL/min BUN/Creatinine Ratio 14.1 (6-22) Glucose 117 H (70-99) mg/dL Calcium 9.0 (8.4-10.2) mg/dL Total Bilirubin 0.5 (0.2-1.3) mg/dL AST 40 (17-59) IU/L ALT 59 H (<50) IU/L Alkaline Phosphatase 80 (38-126) U/L Total Protein 7.6 (6.3-8.2) g/dL Albumin 4.5 (3.5-5.0) g/dL Globulin 3.1 (1.7-4.1) g/dL Albumin/Globulin Ratio 1.5 (1.0-2.8) Lipase 101 (23-300) U/L Urine Color Yellow Urine Appearance Clear Urine pH 6.5 (4.5-8.0) Ur Specific [place] 1.010 (1.000-1.035) Urine Protein Trace H (Negative) Urine Glucose (UA) Negative (Negative) g/dL Urine Ketones Negative (NEGATIVE) Urine Occult Blood Negative (Negative) Urine Nitrate Negative (Negative) Urine Bilirubin Negative (NEGATIVE) Urine Urobilinogen 0.2 (0.2) E.U./dL Ur Leukocyte Esterase Negative (NEGATIVE) Urine RBC 0-1/hpf (0-5/HPF) Urine WBC 0-1/hpf (0-5/HPF) Ur Squamous Epith Cells 0-1 /hpf (0-5/HPF) Urine Bacteria Occasional (0-1) (None) Urine Mucus 1+ H (Negative) Ur Culture Indicated? Cult not indicated Vol Urine Centrifuged 10ml (spun) Stl C. cayetanensis PCR Not detected (Not Detect) Stool Rotavirus (PCR) Not detected (Not Detect) Stool Adenovirus (PCR) Not detected (Not Detect) Stool Astrovirus (PCR) Not detected (Not Detect) Stool Cryptosporidium PCR Not detected (Not Detect) Stl E.coli Shiga Tox PCR Not detected (Not Detect) St Sh/Enteroin Ecoli PCR Not detected (Not Detect) Stl Enterotoxigenic E PCR Not detected (Not Detect) Stool EPEC (PCR) Not detected (Not Detect) Stl E. histolytica PCR Not detected (Not Detect) Stool Giardia Lamblia PCR Not detected (Not Detect) Stool Sapovirus (PCR) Not detected (Not Detect) Stl P. shigelloides PCR Not detected (Not Detect) St Y.enterocolitica PCR Not detected (Not Detect) Stool Vibrio (PCR) Not detected (Not Detect) Stl Vibrio cholerae PCR Not detected (Not Detect) Stl Enteroaggr Ecoli PCR Not detected (Not Detect) Stl Norovirus GI/GII PCR Not detected (Not Detect) Campylobacter (PCR) Not detected (Not Detect) C. difficile Tox (PCR) Not detected (Not Detect) SARS-CoV-2 (PCR) Negative (Negative) Influenza A (RT-PCR) Flu a positive H (NEGATIVE) Influenza B (RT-PCR) Flu b negative (NEGATIVE) RSV (PCR) Negative (Negative) Salmonella (PCR) Not detected (Not Detect) MDM Narrative Medical decision making narrative: 29-year-old male coming in with multiple bouts of watery diarrhea for the past 2 days. Patient feeling little bit better after some nausea medication and IV fluids. GI panel also negative. Will send home with take-home pack of Zofran and prescribed some more as well. Patient found to be positive for influenza A the which is most likely the culprit. Discharge Plan Departure Patient Disposition: Home Clinical Impression: Influenza A Diarrhea Qualifiers: Diarrhea type: unspecified type Qualified Code(s): R19.7 - Diarrhea, unspecified Instructions: Diarrhea Activity Restrictions/Additional Instructions: Continue to hydrate well with electrolytes. Use nausea medication as needed. Still awaiting GI panel we will call if results and potentially call in additional medication if needed. Come back sooner if symptoms worsen. Prescriptions: New ondansetron 4 mg tablet,disintegrating 4 mg PO Q6H PRN (Reason: nausea and vomiting) Qty: 14 0RF No Action atorvastatin 40 mg tablet 40 mg PO BEDTIME Qty: 90 3RF albuterol sulfate 90 mcg/actuation HFA aerosol inhaler 1 inh inhalation QID PRN (Reason: shortness of breath or wheezing) Qty: 6.7 3RF fluticasone furoate 27.5 mcg/actuation spray,suspension 1 spray intranasal DAILY PRN (Reason: nasal congestion) Qty: 9.1 1RF Rx Instructions: into each nostril amoxicillin 500 mg capsule 500 mg PO TID Qty: 21 0RF Referrals: Miguel Avendano, [Primary Care Provider, Family Practice] Stand Alone Forms: Patient Portal/API
[2025-07-07 03:46] LABS: Add Manual Diff / Slide Review NO; Hematocrit 40.5 % (41-53); Hemoglobin 14.2 g/dL (13.5-17.5); Lymphocytes Absolute Auto 500 /uL (1100-4500); Mean Corpuscular HGB Conc 35.0 % (30-36); Mean Corpuscular Hemoglobin 30.1 PG (26-34); Mean Corpuscular Volume 85.9 fL (80-100); Platelet Count 241 X10^3/uL (150-400)
[2025-07-07] MEDS: SODIUM CHLORIDE 0.9% 1,000 ML 1000 ML IV (03:47)
[2025-07-07] MEDS: ONDANSETRON 4 MG/2 ML INJ IV ×2 (03:47→04:29)
[2025-07-07 03:50] LABS: Alanine Aminotransferase 59 IU/L (<50); Albumin 4.5 g/dL (3.5-5.0); Albumin Globulin Ratio 1.5 (1.0-2.8); Alkaline Phosphatase 80 U/L (38-126); Blood Urea Nitrogen 11 mg/dL (9-20); Calcium 9.0 mg/dL (8.4-10.2); Carbon Dioxide 24 mmol/L (22-32); Chloride 99 mmol/L (98-107); Estimated Glomerular Filt Rate > 60 mL/min (>60); Globulin 3.1 g/dL (1.7-4.1); Glucose 117 mg/dL (70-99); HEMOLYSIS < 15 (0-50); Lipase 101 U/L (23-300); Potassium 3.9 mmol/L (3.4-5.1); Sodium 133 mmol/L (137-145); Total Protein 7.6 g/dL (6.3-8.2)
[2025-07-07 04:00] LABS: Appearance Urine UA CLEAR; Bilirubin Urine UA NEGATIVE (NEGATIVE); Color Urine UA YELLOW; Glucose Urine UA NEGATIVE (Negative); Ketones Urine UA NEGATIVE (NEGATIVE); Leukocyte Esterase Urine UA NEGATIVE (NEGATIVE); Nitrite Urine UA NEGATIVE (Negative); Occult Blood Urine UA NEGATIVE (Negative); Protein Urine UA TRACE (Negative); Specific Gravity Urine UA 1.010 (1.000-1.035); Urobilinogen Urine UA 0.2 E.U./dL (0.2); pH Urine UA 6.5 (4.5-8.0)
[2025-07-07 04:07] LABS: Culture Indicated Urine Cult Not Indicated
[2025-07-07 05:15] LABS: Clostridium difficile toxin AB Not Detected (Not Detect); Enteroaggregative E.coli Not Detected (Not Detect); Enteropathogenic E.coli Not Detected (Not Detect); Enterotoxigenic E.coli It/st Not Detected (Not Detect); Plesiomonsa shigelloides Not Detected (Not Detect); Shiga-like toxin-prod E.coli Not Detected (Not Detect)
[2025-07-07] MEDS: ONDANSETRON 4 MG ODT PREPACK 1 BOTTLE MISC (05:27)
[2025-07-07 05:35] VITALS: BP 141/89; PULSE 98; RESP 24; O2SAT 97
[2025-07-07 06:16] LABS: Influenza A - CEPHEID Flu A POSITIVE (NEGATIVE); Influenza B - CEPHEID Flu B NEGATIVE (NEGATIVE)
[2025-07-07 06:31] LABS: COVID-19 CEPHEID 4-PLEX PCR Negative (Negative)
== END 2025-07-07 05:37 | disposition home or self-care (01) ==
PROVIDERS: Emergency Provider Family Medicine; PCP Family Medicine
DX: J10.1 Influenza due to other identified influenza virus with other respiratory manifestations (principal); R19.7 Diarrhea, unspecified; R50.9 Fever, unspecified; R53.83 Other fatigue
CPT/HCPCS: 36415; 80053; 81003; 81015; 83690; 85025; 87507; 87637; 96361; 96374; 96376; 99284; J2405; J7030